=== PATIENT | male | born 1935 | race Caucasian/White ===

== ENCOUNTER → 2017-07-07 | Outpatient (CLI) | payer OTHER ==
[~2017-07-07] MED LIST: ATOR10 PO; DYAZ37.52 PO; ENAL2.5 PO; METO25 PO; OMEP20CA5 PO; TAB-TAB PO; TIOT18I INH; VENTAER INH
--- NOTE | 2017-07-11 10:16 | RSPPFT ---
DATE OF PROCEDURE: 07/07/17 COMMENTS: Spirometry with FVC of 1.9 predicted 3.2, FEV1 of 0.9 predicted 2.5, FEV1/FVC ratio at 47%. There is some responsiveness to acutely inhaled bronchodilator with FEV1 increasing to 1.1 and FVC to 2.2. Air trapping is not present. The RV/TLC ratio is increased. DLCO is decreased. IMPRESSION: On the basis of the above, patient has a combined obstructive and restrictive defect with the obstructive component responding to acutely inhaled bronchodilator treatment.
== END ==
LOC: HRSP 09:12
PROVIDERS: ATTEND Internal Medicine Pulmonary Disease
DX: J44.9 Chronic obstructive pulmonary disease, unspecified (principal)
CPT/HCPCS: 94060; 94620; 94726; 94729

== ENCOUNTER 2017-11-04 12:33 | Emergency (ER) | payer OTHER ==
[~2017-11-04] VITALS: Ht 177.8 cm; Wt 86.0 kg
[2017-11-04 12:39] VITALS: BP 145/74; PULSE 99; RESP 18; TEMP 97.9; O2SAT 90
[2017-11-04] MEDS ORDERED: AMLO10TA2 PO (13:16)
[2017-11-04] MEDS ORDERED: ATOR10TA15 PO (13:16)
[2017-11-04] MEDS ORDERED: OMEP20TA93 PO (13:16)
[2017-11-04] MEDS ORDERED: FURO20TA PO (13:16)
[2017-11-04] MEDS ORDERED: ENAL10TA PO (13:16)
[2017-11-04] MEDS ORDERED: POTA10CA PO (13:16)
[2017-11-04] MEDS ORDERED: SULFAMETHOXAZOLE-TRIMETHOPRIM DS 800-160 MG TAB PO ONE (13:30)
[2017-11-04] MEDS ORDERED: CEPHALEXIN MONOHYDRATE 500 MG CAP PO ONE (13:30)
[2017-11-04] MEDS ORDERED: CEPH-460 PO (13:34)
[2017-11-04] MEDS ORDERED: BACT800T5 PO (13:34)
--- NOTE | 2017-11-04 13:35 | PD ---
HPI Chief Complaint: Skin Problem Time Seen by Provider: 13:24 Travel History International Travel<30 days: No Contact w/Intl Traveler<30days: No Traveled to known affect area: No History of Present Illness HPI 82-year-old male presents to the emergency department for evaluation of possible skin infection to his right forearm. Patient states that he had skin cancer removed by a lens coater the beginning of September. He was asked to weeks later and had the stitches removed. However, the last couple days, he has noticed some erythema to the area. He states that he did get some drainage out this morning from the area. No fevers or chills. Patient reports COPD with chronic shortness of breath. He states that his breathing is his normal and is at his baseline. His oxygen level is 90% on room air in triage and patient states this is his baseline. He declines any worsening or new symptoms. Moderate severity. No exacerbating or alleviating factors to the right forearm. PFSH Past Medical History Arthritis: Yes Asthma: Yes Autoimmune Disease: No Blood Disorders: No Anxiety: No Depression: No Heart Rhythm Problems: Yes (POSSIBLE A FIB? ) Cancer: Yes (SKIN CA) Cardiac Catheterization: Yes Cardiovascular Problems: Yes (CABG 2013) High Cholesterol: Yes (TAKES LIPITOR ) Chemotherapy: No Chest Pain: No Congestive Heart Failure: No COPD: No Cerebrovascular Accident: No Diabetes: No Diminished Hearing: No Endocrine: No Gastrointestinal Disorders: Yes GERD: Yes Glaucoma: No Genitourinary: No Headaches: No Hepatitis: No Hypertension: Yes (TAKES ENALAPRIL, LOPRESSOR) Immune Disorder: No Implanted Vascular Access Dvce: Yes Kidney Stones: No Musculoskeletal: Yes Neurologic: No Psychiatric: No Reproductive: No Respiratory: Yes (COPD, USES INHALER, BRONCHIAL ASTHMA) Migraines: No Myocardial Infarction: Yes Radiation Therapy: No Renal Failure: No Seizures: No Sickle Cell Disease: No Sleep Apnea: No Thyroid Disease: No Ulcer: No PNEUMOCCOCAL Vaccine (Year): 2 Past Surgical History Abdominal Surgery: No AICD: No Appendectomy: No Arteriovenous Shunt: No Body Medical Devices: CARDIAC STENT X2 Cardiac Surgery: Yes Coronary Artery Bypass Graft: Yes (2013) Coronary Stent: Yes (2) Ear Surgery: No Endocrine Surgery: No Eye Surgery: No Genitourinary Surgery: No Gynecologic Surgery: No Insulin Pump: No Joint Replacement: Yes (BOTH KNEES) Neurologic Surgery: No Pacemaker: No Thoracic Surgery: No Other Surgery: Yes (SEPTOPLASTY 2010, SKIN CA REMOVED MULTIPLE TIMES) Social History Alcohol Use: Yes (1 TO 2 DAILY) Tobacco Use: No Substance Use: No Allergies-Medications (Allergen,Severity, Reaction): Coded Allergies: codeine (Verified Allergy, Unknown, 11/04/17) CONFUSION Reported Meds & Prescriptions Reported Meds & Active Scripts Active Reported Furosemide 20 Mg Tab 20 Mg PO DAILY Potassium Chloride ER (Potassium Chloride) 10 Meq Cap 10 Meq PO DAILY Atorvastatin (Atorvastatin Calcium) 10 Mg Tab 10 Mg PO HS Omeprazole 20 Mg Tab 20 Mg PO DAILY Enalapril (Enalapril Maleate) 10 Mg Tab 10 Mg PO DAILY Amlodipine (Amlodipine Besylate) 10 Mg Tab 10 Mg PO DAILY Review of Systems Except as stated in HPI: all other systems reviewed are Neg Physical Exam Narrative GENERAL: Well-nourished, well-developed elderly male patient, afebrile. SKIN: Focused skin assessment warm/dry. Patient has small area of erythema to the right dorsal forearm. No lymphangitis. No active drainage. HEAD: Normocephalic. Atraumatic. EYES: No scleral icterus. No injection or drainage. NECK: Supple, trachea midline. No JVD or lymphadenopathy. CARDIOVASCULAR: Right radial pulse 2+. RESPIRATORY: No accessory muscle use. MUSCULOSKELETAL: No cyanosis, or edema. BACK: Nontender without obvious deformity. No CVA tenderness. Data Data Last Documented VS Vital Signs Date Time Temp Pulse Resp B/P (MAP) Pulse Ox O2 Delivery O2 Flow Rate FiO2 11/04/17 12:39 97.9 99 18 145/74 (97) 90 Orders Orders Sulfamet-Trimeth Ds 800-160 Mg (Bactrim (11/04/17 13:30) Cephalexin (Keflex) (11/04/17 13:30) [facility] Medical Decision Making Medical Screen Exam Complete: Yes Emergency Medical Condition: Yes Medical Record Reviewed: Yes Differential Diagnosis Cellulitis versus abscess versus skin rash Narrative Course 82-year-old male presents to the emergency department for evaluation of an area of erythema to his right dorsal forearm. Otherwise, patient has no complaints and states he is at his baseline. Patient will be started on Bactrim and Keflex. He is given his first dose here. He is instructed on proper wound care. He is to follow back up with his lens coater. He is to return here for any acute worsening of symptoms. The patient was discharged in stable condition with instructions, including return instructions and follow up instructions. Diagnosis Primary Impression: Cellulitis of right forearm Referrals: Primary Care Physician call for appointment Patient Instructions: Cellulitis (ED), General Instructions Additional Instructions: Clean area twice daily with soap and water and apply [id number] antibiotic ointment Take antibiotics as directed until gone. Follow-up with your lens coater. Return to the emergency department for any acute worsening of symptoms. Med/Other Pt SpecificInfo: Prescription(s) given Scripts Cephalexin (Keflex) 500 Mg Capsule 500 MG PO Q6H for Infection for 10 Days, #40 CAP 0 Refills Prov: Jeimy Muller 11/04/17 Sulfamethoxazole-Trimethoprim (Bactrim DS) 800-160 Mg Tab 1 TAB PO BID for Infection, #20 TAB 0 Refills Prov: Jeimy Muller 11/04/17 Disposition: 01 DISCHARGE HOME Condition: Stable Jeimy Muller Nov 04, 2017 13:35
[2017-11-05] MEDS ORDERED: COLY4000S PO (17:13)
== END 2017-11-04 13:49 | disposition home or self-care (01) ==
LOC: PHED 12:33 → PHEFT 13:49
DX: L03.113 Cellulitis of right upper limb (principal); J44.9 Chronic obstructive pulmonary disease, unspecified; R06.02 Shortness of breath; I10 Essential (primary) hypertension
CPT/HCPCS: 99283

== ENCOUNTER 2017-11-05 16:45 | Emergency (ER) | payer OTHER ==
[~2017-11-05] VITALS: Ht 172.7 cm; Wt 86.0 kg
[~2017-11-05 16:45] MED LIST changes: +AMLO10TA2 PO; -ATOR10 PO; +ATOR10TA15 PO; +BACT800T5 PO; +CEPH-460 PO; -DYAZ37.52 PO; +ENAL10TA PO; -ENAL2.5 PO; +FURO20TA PO; -METO25 PO; -OMEP20CA5 PO; +OMEP20TA93 PO; +POTA10CA PO; -TAB-TAB PO; -TIOT18I INH; -VENTAER INH
[2017-11-05 16:56] VITALS: BP 106/60; PULSE 101; RESP 24; TEMP 97.8; O2SAT 88
--- NOTE | 2017-11-05 17:06 | PD ---
HPI Chief Complaint: Abdominal Pain Time Seen by Provider: 17:04 Travel History International Travel<30 days: No Contact w/Intl Traveler<30days: No Traveled to known affect area: No History of Present Illness HPI Patient presents with complaints of constipation for 2-3 days. States this is not unusual for him but he normally has a bowel movement after 2 days. States he took some Colace this morning with a very small bowel movement. Denies any nausea or vomiting. History of COPD at baseline. Evaluated yesterday for lesion on his right arm. Compliant with oral antibiotics. PFSH Past Medical History Arthritis: Yes Asthma: Yes Autoimmune Disease: No Blood Disorders: No Anxiety: No Depression: No Heart Rhythm Problems: Yes (POSSIBLE A FIB? ) Cancer: Yes (SKIN CA) Cardiac Catheterization: Yes Cardiovascular Problems: Yes (CABG 2013) High Cholesterol: Yes Chemotherapy: No Chest Pain: No Congestive Heart Failure: No COPD: Yes Cerebrovascular Accident: No Diabetes: No Diminished Hearing: No Endocrine: No Gastrointestinal Disorders: Yes GERD: Yes Glaucoma: No Genitourinary: No Headaches: No Hepatitis: No Hypertension: Yes Immune Disorder: No Implanted Vascular Access Dvce: Yes Kidney Stones: No Musculoskeletal: Yes Neurologic: No Psychiatric: No Reproductive: No Respiratory: Yes (COPD, USES INHALER, BRONCHIAL ASTHMA) Migraines: No Myocardial Infarction: Yes Radiation Therapy: No Renal Failure: No Seizures: No Sickle Cell Disease: No Sleep Apnea: No Thyroid Disease: No Ulcer: No PNEUMOCCOCAL Vaccine (Year): 2 Past Surgical History Abdominal Surgery: No AICD: No Appendectomy: No Arteriovenous Shunt: No Body Medical Devices: CARDIAC STENT X2 Cardiac Surgery: Yes Coronary Artery Bypass Graft: Yes (2013) Coronary Stent: Yes (2) Ear Surgery: No Endocrine Surgery: No Eye Surgery: No Genitourinary Surgery: No Gynecologic Surgery: No Insulin Pump: No Joint Replacement: Yes (BOTH KNEES) Neurologic Surgery: No Pacemaker: No Thoracic Surgery: No Tonsillectomy: Yes Other Surgery: Yes (SEPTOPLASTY 2010, SKIN CA REMOVED MULTIPLE TIMES) Social History Alcohol Use: Yes (1 TO 2 DAILY) Tobacco Use: No Substance Use: No Allergies-Medications (Allergen,Severity, Reaction): Coded Allergies: codeine (Verified Allergy, Unknown, 11/04/17) CONFUSION Reported Meds & Prescriptions Reported Meds & Active Scripts Active Keflex (Cephalexin) 500 Mg Capsule 500 Mg PO Q6H 10 Days Bactrim DS (Sulfamethoxazole-Trimethoprim) 800-160 Mg Tab 1 Tab PO BID Reported Furosemide 20 Mg Tab 20 Mg PO DAILY Potassium Chloride ER (Potassium Chloride) 10 Meq Cap 10 Meq PO DAILY Atorvastatin (Atorvastatin Calcium) 10 Mg Tab 10 Mg PO HS Omeprazole 20 Mg Tab 20 Mg PO DAILY Enalapril (Enalapril Maleate) 10 Mg Tab 10 Mg PO DAILY Amlodipine (Amlodipine Besylate) 10 Mg Tab 10 Mg PO DAILY Review of Systems General / Constitutional: No: Fever Eyes: No: Visual changes HENT: No: Headaches Cardiovascular: No: Chest Pain or Discomfort Respiratory: No: Shortness of Breath Gastrointestinal: Positive: Abdominal Pain, Constipation Genitourinary: No: Dysuria Musculoskeletal: No: Pain Skin: No Rash Neurologic: No: Weakness Psychiatric: No: Depression Endocrine: No: Polydipsia Hematologic/Lymphatic: No: Easy Bruising Physical Exam Narrative GENERAL: Well-nourished, well-developed patient. SKIN: Focused skin assessment warm/dry. HEAD: Normocephalic. EYES: No scleral icterus. No injection or drainage. NECK: Supple, trachea midline. No JVD or lymphadenopathy. CARDIOVASCULAR: Regular rate and rhythm without murmurs, gallops, or rubs. RESPIRATORY: Poor breath sounds.. GASTROINTESTINAL: Abdomen soft, non-tender, minimally distended MUSCULOSKELETAL: No cyanosis, or edema. BACK: Nontender without obvious deformity. No CVA tenderness. Data Data Last Documented VS Vital Signs Date Time Temp Pulse Resp B/P (MAP) Pulse Ox O2 Delivery O2 Flow Rate FiO2 11/05/17 17:00 88 Nasal Cannula 2.00 11/05/17 16:56 97.8 101 24 106/60 (75) [facility] Medical Decision Making Medical Screen Exam Complete: Yes Emergency Medical Condition: Yes Differential Diagnosis Constipation, small bowel obstruction, malingering Narrative Course Assessment plan discussed with patient at bedside. Diagnosis Primary Impression: Constipation Qualified Codes: K59.00 - Constipation, unspecified Patient Instructions: General Instructions Additional Instructions: Encouraged a fluid fiber supplement daily. Encourage regular use of Colace. Encouraged regular use of prune juice. Discussed alternative treatment with patient a list was provided to him. Encouraged to return to the emergency room with any onset of new symptoms. Encouraged to follow-up with PCP. Med/Other Pt SpecificInfo: Prescription(s) given Scripts Peg-Electrolytes (Golytely 236 gm) 4,000 Ml Soln 4000 ML PO ONCE for Bowel Cleanser, #1 CONTAINER 0 Refills Prov: Waldemar Stevens MD 11/05/17 Disposition: 01 DISCHARGE HOME Condition: Good Waldemar Stevens MD Nov 05, 2017 17:06
[2017-11-05] MEDS ORDERED: COLY4000S PO (17:13)
== END 2017-11-05 17:33 | disposition home or self-care (01) ==
LOC: PHED 16:45
DX: K59.00 Constipation, unspecified (principal); J44.9 Chronic obstructive pulmonary disease, unspecified; J45.909 Unspecified asthma, uncomplicated; I10 Essential (primary) hypertension
CPT/HCPCS: 99283

== ENCOUNTER 2017-11-07 08:02 | Inpatient (IN) | payer OTHER, MEDICARE ==
[~2017-11-07] VITALS: Ht 172.7 cm; Wt 84.5 kg
[2017-11-07] VITALS (9 sets, daily range): BP systolic 116–144; BP diastolic 53–72; PULSE 74–87; RESP 16–20; TEMP 96.2–98.1; O2SAT 85–97
[~2017-11-07 08:02] MED LIST changes: +COLY4000S PO
[2017-11-07] MEDS ORDERED: RESP: ALBUTEROL 2.5 MG/IPRATROPIUM 0.5 MG NEB (SCH) INH ONE (08:15)
[2017-11-07] MEDS ORDERED: SODIUM CHLORIDE 0.9% FLUSH 10 ML FLUSH IVF PRN (08:15)
[2017-11-07 08:29] LABS: AUTOMATED NEUTROPHIL # 8.1 TH/MM3 (1.8-7.7); BASOPHIL # 0.5 TH/MM3 (0-0.2); BASOPHIL % 4.4 % (0.0-2.0); CHLORIDE 99 MEQ/L (98-107); EOSINOPHIL # 0.1 TH/MM3 (0-0.4); EOSINOPHIL % 1.2 % (0.0-4.0); HEMATOCRIT 43.8 % (39.0-51.0); HEMOGLOBIN 14.1 GM/DL (13.0-17.0); LYMPH % 7.1 % (9.0-44.0); LYMPHOCYTE # 0.8 TH/MM3 (1.0-4.8); MEAN CORPUSCULAR HEMOGLOBIN 30.3 PG (27.0-34.0); MEAN CORPUSCULAR HGB CONC 32.2 % (32.0-36.0); MEAN PLATELET VOLUME 7.6 FL (7.0-11.0); MONO % 12.6 % (0.0-8.0); MONOCYTE # 1.4 TH/MM3 (0-0.9); NEUT % 74.7 % (16.0-70.0); PLATELET COUNT 321 TH/MM3 (150-450); RED BLOOD COUNT 4.66 MIL/MM3 (4.50-5.90); RED CELL DISTRIBUTION WIDTH 15.2 % (11.6-17.2); SODIUM (NA) 131 MEQ/L (136-145); WHITE BLOOD COUNT 10.9 TH/MM3 (4.0-11.0)
--- NOTE | 2017-11-07 08:32 | PD ---
HPI Chief Complaint: Respiratory Symptoms Time Seen by Provider: 08:07 Travel History International Travel<30 days: No Contact w/Intl Traveler<30days: No Traveled to known affect area: No History of Present Illness HPI Patient is an 82-year-old male who comes in complaining of shortness of breath. He has a longtime history of COPD, and says that this has been going on for a while. He was here on November 04 and for different complaints, and did not mention the shortness of breath. When asked why he called 911 today, he says that he was unable to sleep last night and he had trouble eating yesterday. He denies nausea or vomiting. He denies abdominal pain. He denies chest pain. He says he always has a cough. He denies fever or chills. He says he has been using his inhaler without relief of his symptoms. He denies leg swelling or pain to his legs. Severity is mild. PFSH Past Medical History Hx Anticoagulant Therapy: No Arthritis: Yes Asthma: Yes Autoimmune Disease: No Blood Disorders: No Anxiety: No Depression: No Heart Rhythm Problems: Yes (POSSIBLE A FIB? ) Cancer: Yes (SKIN CA) Cardiac Catheterization: Yes Cardiovascular Problems: Yes (TRIPLE BYPASS, HTN, CHOL, IRREGULAR HEART BEAT) High Cholesterol: Yes Chemotherapy: No Chest Pain: No Congestive Heart Failure: No COPD: Yes Cerebrovascular Accident: No Diabetes: No Diminished Hearing: No Endocrine: No Gastrointestinal Disorders: Yes GERD: Yes Glaucoma: No Genitourinary: No Headaches: No Hepatitis: No Heparin Induced Thrombocytopen: No Hypertension: Yes Immune Disorder: No Implanted Vascular Access Dvce: Yes Kidney Stones: No Musculoskeletal: Yes Neurologic: No Psychiatric: No Reproductive: No Respiratory: Yes (COPD) Migraines: No Myocardial Infarction: Yes Radiation Therapy: No Renal Failure: No Seizures: No Sickle Cell Disease: No Sleep Apnea: No Thyroid Disease: No Ulcer: No PNEUMOCCOCAL Vaccine (Year): 2 Past Surgical History Abdominal Surgery: No AICD: No Appendectomy: No Arteriovenous Shunt: No Body Medical Devices: CARDIAC STENT X2 Cardiac Surgery: Yes Cholecystectomy: No Coronary Artery Bypass Graft: Yes (2013) Coronary Stent: Yes (2) Ear Surgery: No Endocrine Surgery: No Eye Surgery: No Genitourinary Surgery: No Gynecologic Surgery: No Insulin Pump: No Joint Replacement: Yes (BOTH KNEES) Neurologic Surgery: No Pacemaker: No Thoracic Surgery: No Tonsillectomy: Yes Other Surgery: Yes (SEPTOPLASTY 2010, SKIN CA REMOVED MULTIPLE TIMES) Family History Family Myocardial Infarction: No Social History Alcohol Use: Yes (1 TO 2 DAILY) Tobacco Use: No Substance Use: No Allergies-Medications (Allergen,Severity, Reaction): Coded Allergies: codeine (Verified Allergy, Unknown, 11/07/17) CONFUSION Reported Meds & Prescriptions Reported Meds & Active Scripts Active Reported Furosemide 20 Mg Tab 20 Mg PO DAILY Potassium Chloride ER (Potassium Chloride) 10 Meq Cap 10 Meq PO DAILY Atorvastatin (Atorvastatin Calcium) 10 Mg Tab 10 Mg PO HS Omeprazole 20 Mg Tab 20 Mg PO DAILY Enalapril (Enalapril Maleate) 10 Mg Tab 10 Mg PO DAILY Amlodipine (Amlodipine Besylate) 10 Mg Tab 10 Mg PO DAILY Review of Systems Except as stated in HPI: all other systems reviewed are Neg General / Constitutional: No: Fever, Chills HENT: No: Headaches, Lightheadedness Cardiovascular: No: Chest Pain or Discomfort Respiratory: Positive: Cough, Shortness of Breath Gastrointestinal: No: Nausea, Vomiting, Abdominal Pain Musculoskeletal: No: Myalgias, Edema Skin: No Rash, No Change in Pigmentation Neurologic: No: Weakness, Dizziness Physical Exam Narrative GENERAL: Awake and alert, in no acute distress. SKIN: Focused skin assessment warm/dry. No wounds or signs of infection. HEAD: Atraumatic. Normocephalic. EYES: Pupils equal and round. No scleral icterus. ENT: Mucous membranes pink and moist. NECK: Trachea midline. No JVD. CARDIOVASCULAR: Regular rate and rhythm. No murmur appreciated. RESPIRATORY: No accessory muscle use. Decreased breath sounds on the right. Breath sounds equal bilaterally. GASTROINTESTINAL: Abdomen soft, non-tender, nondistended. MUSCULOSKELETAL: No obvious deformities. No clubbing. No cyanosis. No edema. NEUROLOGICAL: Awake and alert. No obvious cranial nerve deficits. Motor grossly within normal limits. Normal speech. PSYCHIATRIC: Appropriate mood and affect; insight and judgment normal. Data Data Last Documented VS Vital Signs Date Time Temp Pulse Resp B/P (MAP) Pulse Ox O2 Delivery O2 Flow Rate FiO2 11/07/17 09:13 81 16 128/53 (78) 94 Nasal Cannula 2.00 11/07/17 08:05 97.9 Orders Orders Complete Blood Count With Diff (11/07/17 08:12) Comprehensive Metabolic Panel (11/07/17 08:12) B-Type Natriuretic Peptide (11/07/17 08:12) Act Partial Throm Time (Ptt) (11/07/17 08:12) Prothrombin Time / Inr (Pt) (11/07/17 08:12) Troponin I (11/07/17 08:12) Influenzae A/B Antigen (11/07/17 08:12) Iv Access Insert/Monitor (11/07/17 08:12) Electrocardiogram (11/07/17 08:12) Ecg Monitoring (11/07/17 08:12) Oximetry (11/07/17 08:12) Oxygen Administration (11/07/17 08:12) Chest, Single Ap (11/07/17 08:12) Sodium Chloride 0.9% Flush (Ns Flush) (11/07/17 08:15) Albuterol-Ipratropium Neb (Duoneb Neb) (11/07/17 08:15) Furosemide Inj (Lasix Inj) (11/07/17 09:15) Ceftriaxone Inj (Rocephin Inj) (11/07/17 09:30) Azithromycin Inj (Zithromax Inj) (11/07/17 09:30) Labs Laboratory Tests Test 11/07/17 08:05 White Blood Count 10.9 TH/MM3 Red Blood Count 4.66 MIL/MM3 Hemoglobin 14.1 GM/DL Hematocrit 43.8 % Mean Corpuscular Volume 94.0 FL Mean Corpuscular Hemoglobin 30.3 PG Mean Corpuscular Hemoglobin Concent 32.2 % Red Cell Distribution Width 15.2 % Platelet Count 321 TH/MM3 Mean Platelet Volume 7.6 FL Neutrophils (%) (Auto) 74.7 % Lymphocytes (%) (Auto) 7.1 % Monocytes (%) (Auto) 12.6 % Eosinophils (%) (Auto) 1.2 % Basophils (%) (Auto) 4.4 % Neutrophils # (Auto) 8.1 TH/MM3 Lymphocytes # (Auto) 0.8 TH/MM3 Monocytes # (Auto) 1.4 TH/MM3 Eosinophils # (Auto) 0.1 TH/MM3 Basophils # (Auto) 0.5 TH/MM3 CBC Comment DIFF FINAL Differential Comment Prothrombin Time 10.8 SEC Prothromb Time International Ratio 1.1 RATIO Activated Partial Thromboplast Time 25.0 SEC Blood Urea Nitrogen 13 MG/DL Creatinine 0.91 MG/DL Random Glucose 127 MG/DL Total Protein 7.4 GM/DL Albumin 3.0 GM/DL Calcium Level 8.5 MG/DL Alkaline Phosphatase 86 U/L Aspartate Amino Transf (AST/SGOT) 17 U/L Alanine Aminotransferase (ALT/SGPT) 26 U/L Total Bilirubin 1.0 MG/DL Sodium Level 131 MEQ/L Potassium Level 4.4 MEQ/L Chloride Level 99 MEQ/L Carbon Dioxide Level 24.0 MEQ/L Anion Gap 8 MEQ/L Estimat Glomerular Filtration Rate 79 ML/MIN Troponin I LESS THAN 0.02 NG/ML B-Type Natriuretic Peptide 361 PG/ML MDM Medical Decision Making Medical Screen Exam Complete: Yes Emergency Medical Condition: Yes Medical Record Reviewed: Yes Interpretation(s) ECG shows supraventricular rhythm at a rate of 79 Differential Diagnosis COPD exacerbation versus pneumonia versus influenza Narrative Course Patient is an 82-year-old male who comes in complaining of shortness of breath. Exam shows some decreased breath sounds on the right. I have examined, labs sent. Labs show a left shift, with increased neutrophils. Chest x-ray performed shows vascular congestion and a large right-sided pleural effusion, that is loculated, concerning for pneumonia. Last 24 hours Impressions Chest X-Ray 11/07/17 0812 Signed Impressions: Service Date/Time: Tuesday, November 07, 2017 08:31 - CONCLUSION: 1. Mild pulmonary vascular congestion. 2. Loculated appearing small to moderate size right pleural effusion with associated right lower lobe airspace disease. Lucio Singer MD Patient was given 1 DuoNeb, a small dose of Lasix, and covered with antibiotics. He will be admitted for further management. Diagnosis Primary Impression: Pneumonia Qualified Codes: J18.1 - Lobar pneumonia, unspecified organism Additional Impression: Shortness of breath Admitting Information Admitting Physician Requests: Admit Mercy Layton MD Nov 07, 2017 08:32
[2017-11-07 08:33] LABS: BLOOD UREA NITROGEN 13 MG/DL (7-18); CALCIUM 8.5 MG/DL (8.5-10.1); GLUCOSE,RANDOM 127 MG/DL (74-106)
[2017-11-07 08:35] LABS: INTERNATIONAL NORMALIZED RATIO 1.1 RATIO; PROTHROMBIN TIME - PATIENT 10.8 SEC (9.8-11.6)
[2017-11-07 08:36] LABS: ALT (GPT) 26 U/L (12-78); AST (GOT) 17 U/L (15-37)
[2017-11-07 08:37] LABS: CREATININE 0.91 MG/DL (0.60-1.30); GLOMERULAR FILTRATION RATE 79 ML/MIN (>89)
[2017-11-07 08:38] LABS: TOTAL PROTEIN 7.4 GM/DL (6.4-8.2)
[2017-11-07 08:39] LABS: ALKALINE PHOSPHATASE 86 U/L (45-117)
[2017-11-07 08:41] LABS: TROPONIN I LESS THAN 0.02 NG/ML (0.02-0.05)
--- NOTE | 2017-11-07 09:10 | RADRPT ---
EXAM DATE/TIME: 11/07/2017 08:31 [facility] COMPARISON: CHEST SINGLE AP, March 11, 2015, 11:18. INDICATIONS : Short of breath. MEDICAL HISTORY : Chronic obstructive pulmonary disease. Hypercholesterolemia. Myocardial infarction. Hypertension. Irregular heart beat. Asthma. Hiatial hernia. Arthritis. SURGICAL HISTORY : Tonsillectomy. CABG. Bilateral knee replacements. Cardiac cath w/ stent. ENCOUNTER: Initial ACUITY: 1 day PAIN SCORE: 0/10 LOCATION: chest FINDINGS: Stable postsurgical features with median sternotomy wires. The loculated appearing right pleural effu emeterio with associated right lower lobe airspace disease. Redemonstration of pleural calcifications in the left inferior hemithorax. Cardiomedi style contours are stable. Central pulmonary vascularity is indistinct. CONCLUSION: 1. Mild pulmonary vascular congestion. 2. Loculated appearing small to moderate size right pleural effusion with associated right lower lobe airspace disease. Lucio Singer MD on November 07, 2017 at 9:02 Board Certified Radiologist. This report was verified electronically.
[2017-11-07] MEDS ORDERED: FUROSEMIDE 20 MG/2 ML VIAL IV PUSH ONE (09:15)
[2017-11-07] MEDS ORDERED: cefTRIAXone INJ 1,000 MG in SODIUM CHLORIDE 0.9% INJ 100 ML IV ONE (09:30)
[2017-11-07] MEDS ORDERED: AZITHROMYCIN INJ 500 MG in SODIUM CHLOR 0.9% 250 ML INJ 250 ML IV ONE (09:30)
--- NOTE | 2017-11-07 11:30 | RADRPT ---
EXAM DATE/TIME: 11/07/2017 10:01 [facility] COMPARISON: No previous studies available for comparison. INDICATIONS : Right pleural effusion. MEDICAL HISTORY : Hypercholesterolemia. Myocardial infarction. Arthritis. Syncope. Irregular heartbeat. HTN. COPD. Asth ma. Dyspnea. Hiatal hernia. GERD. Skin cancer. SURGICAL HISTORY : Tonsillectomy. Cholecystectomy. Coronary artery stent. CABG. Cardiac cath. Right rotator cuff repair. Bilateral knee replacements. Septoplasty. Skin cancer removed multiple times. ENCOUNTER: Initial ACUITY: 1 day PAIN SCORE: 0/10 LOCATION: Right chest FLUID: Total volume of 1100 cc of clear pale red fluid was removed. Fluid was sent to lab for ordered studies. TECHNIQUE: 1. Ultrasound guidance for thoracentesis. 2. Thoracentesis. The risks, benefits, and alternatives to ultrasound guided thoracentesis were explained to the patien t in lay simple terms, including the risk of bleeding and infection. Written and verbal informed con sent was obtained. Appropriate area for thoracentesis was marked under ultrasound guidance with the patient in the uprig ht position. Overlying skin was prepped and draped in the usual sterile fashion and with local anest hetic, a dermatotomy was made with an 11 blade scalpel. A 6 Mongolian thoracentesis catheter was placed in the pleural space and fluid was removed. Catheter was then removed and a sterile dressing applie d. There were no immediate complications. The patient tolerated the procedure well and the left the ultrasound suite in stable condition. Chest radiograph is to be obtained. CONCLUSION: Uncomplicated ultrasound guided thoracentesis. Ezekiel Morin MD on November 07, 2017 at 11:27 Board Certified Radiologist. This report was verified electronically.
--- NOTE | 2017-11-07 11:52 | RADRPT ---
EXAM DATE/TIME: 11/07/2017 11:10 [facility] COMPARISON: CHEST SINGLE AP, November 07, 2017, 8:31. INDICATIONS : Post right thoracentesis. MEDICAL HISTORY : Chronic obstructive pulmonary disease. Hypercholesterolemia. Myocardial infarction. Hypertension. Irr egular heart beat. Asthma. Hiatial hernia. Arthritis. SURGICAL HISTORY : Tonsillectomy. CABG. Bilateral knee replacements. Cardiac cath w/ stent. ENCOUNTER: Subsequent ACUITY: 1 day PAIN SCORE: 0/10 LOCATION: Right chest FINDINGS: The significant improved right-sided pleural effusion without evidence for significant pneumothorax f ollowing thoracentesis. Redemonstration of diffuse interstitial prominence bilaterally. Persistent ri ght lower lung zone airspace disease. Cardiomediastinal contours are stable. Remainder of the exam is unchanged. CONCLUSION: 1. Interval resolution of right-sided pleural effusion status post thoracentesis without pneumothorax . 2. Right lower lung zone airspace consolidation which may reflect compressive atelectasis although pn eumonia or aspiration cannot be excluded in the appropriate clinical setting. Lucio Singer MD on November 07, 2017 at 11:47 Board Certified Radiologist. This report was verified electronically.
[2017-11-07 12:13] LABS: PLEURAL FLUID EOS 5 %; PLEURAL FLUID LYMPHS 75 %; PLEURAL FLUID POLYS (SEGS) 20 %; PLEURAL FLUID RBC 32000 /MM3 (0-0); PLEURAL FLUID WBC 90 /MM3 (0-10)
[2017-11-07] MEDS ORDERED: RESP: ALBUTEROL 1.25 MG/3 ML NEB (PRN) NEB (12:15)
--- NOTE | 2017-11-07 12:46 | HHI.HP ---
[facility] Kadi Coughlin MD Admission Diagnosis Pneumonia Diagnoses: Chief Complaint: shortness of breath Travel History International Travel<30 Days: No Contact w/Intl Traveler <30 Da: No Traveled to Known Affected Are: No History of Present Illness 82-year-old white male admitting admitted for shortness of breath. Patient was in usual state of health until about a week ago and he says he began experiencing gradual worsening of exertional dyspnea. He says at rest he has been fine. Denies any worsening cough or worsening URI-like symptoms otherwise. However today earlier this morning he bent down forward to unplug the TV and when he did that he felt very short of breath. He took his albuterol thinking it would help but it provided no avail. Thus he decided to come to the emergency department. In the ER, the patient had a chest x-ray which I independently reviewed and shows what appears to be at least a right-sided pleural effusion with possible infiltrates on the right as well. He was given Rocephin and azithromycin and lasix. Patient's past medical history significant for cardiac catheterization as well as bypass surgery. 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 Madrigal in [place]. Patient does report taking his an Anora inhaler daily. Patient does have significant social history for smoking up until about 25 years ago, had been smoking for 40 years. Family history significant for an aunt with breast cancer. Past Family Social History Allergies: Coded Allergies: codeine (Verified Allergy, Unknown, 11/07/17) CONFUSION Physical Exam Vital Signs Vital Signs Date Time Temp Pulse Resp B/P (MAP) Pulse Ox O2 Delivery O2 Flow Rate FiO2 11/07/17 11:54 11/07/17 11:22 87 20 121/60 (80) 97 11/07/17 09:13 81 16 128/53 (78) 94 Nasal Cannula 2.00 11/07/17 08:31 16 95 Nasal Cannula 2.00 11/07/17 08:31 95 Nasal Cannula 2.00 2/13/18 08:10 18 92 Room Air 11/07/17 08:05 97.9 74 18 144/70 (94) 92 Physical Exam VS: afebrile GENERAL: No acute distress lying in bed resting, awake alert SKIN: Warm and dry. EYES: No scleral icterus. No injection or drainage. ENT: No nasal bleeding or discharge. Dentures in place CARDIOVASCULAR: Regular rate and rhythm. no murmurs RESPIRATORY: No accessory muscle use. Clear breath sounds on the left, coarse breath sounds in right base. Has post procedure dressing from thoracentesis on the right. GASTROINTESTINAL: Abdomen soft, non-tender, nondistended. Hepatic and splenic margins not palpable. Extremities: No clubbing, cyanosis, or edema. No obvious deformities. MUSCULOSKELETAL: adequate muscle bulk and tone for age and habitus NEUROLOGICAL: Awake and alert. No obvious cranial nerve deficits. No facial droop nor slurred speech noted. PSYCHIATRIC: Appropriate mood and affect; insight and judgment normal. Laboratory Laboratory Tests Test 11/07/17 08:05 11/07/17 10:53 White Blood Count 10.9 Red Blood Count 4.66 Hemoglobin 14.1 Hematocrit 43.8 Mean Corpuscular Volume 94.0 Mean Corpuscular Hemoglobin 30.3 Mean Corpuscular Hemoglobin Concent 32.2 Red Cell Distribution Width 15.2 Platelet Count 321 Mean Platelet Volume 7.6 Neutrophils (%) (Auto) 74.7 Lymphocytes (%) (Auto) 7.1 Monocytes (%) (Auto) 12.6 Eosinophils (%) (Auto) 1.2 Basophils (%) (Auto) 4.4 Neutrophils # (Auto) 8.1 Lymphocytes # (Auto) 0.8 Monocytes # (Auto) 1.4 Eosinophils # (Auto) 0.1 Basophils # (Auto) 0.5 CBC Comment DIFF FINAL Differential Comment Prothrombin Time 10.8 Prothromb Time International Ratio 1.1 Activated Partial Thromboplast Time 25.0 Blood Urea Nitrogen 13 Creatinine 0.91 Random Glucose 127 Total Protein 7.4 Albumin 3.0 Calcium Level 8.5 Alkaline Phosphatase 86 Aspartate Amino Transf (AST/SGOT) 17 Alanine Aminotransferase (ALT/SGPT) 26 Total Bilirubin 1.0 Sodium Level 131 Potassium Level 4.4 Chloride Level 99 Carbon Dioxide Level 24.0 Anion Gap 8 Estimat Glomerular Filtration Rate 79 Troponin I LESS THAN 0.02 B-Type Natriuretic Peptide 361 Date/Time Source Procedure Growth Status 11/07/17 10:53 Fluid Pleural Fluid Fungal Smear Pending Received 11/07/17 10:53 Fluid Pleural Fluid Fungal Culture Pending Received 11/07/17 08:26 Nasal Washing Influenza Types A,B Antigen (REYNALDO) - Final NEGATIVE FOR FLU A AND B ANTIGEN.... Complete Result Diagram: 11/07/17 0805 11/07/17 0805 Imaging Last Impressions Chest X-Ray 11/07/17 0812 Signed Impressions: Service Date/Time: Tuesday, November 07, 2017 08:31 - CONCLUSION: 1. Mild pulmonary vascular congestion. 2. Loculated appearing small to moderate size right pleural effusion with associated right lower lobe airspace disease. Lucio Singer MD Thoracentesis Ultrasound 11/07/17 0000 Signed Impressions: Service Date/Time: Tuesday, November 07, 2017 10:01 - CONCLUSION: Uncomplicated ultrasound guided thoracentesis. MD Racquel Zuleta VTE Risk Assessment Caprini VTE Risk Assessment: Mod/High Risk (score >= 2) Caprini Risk Assessment Model Point Value = 1 Point Value = 2 Point Value = 3 Point Value = 5 Age 41-60 Minor surgery BMI > 25 kg/m2 Swollen legs Varicose veins or History of unexplained or recurrent spontaneous Oral contraceptives or hormone replacement Sepsis (< 1 month) Serious lung disease, including pneumonia (< 1 month) Abnormal pulmonary function Acute myocardial infarction Congestive heart failure (< 1 month) History of inflammatory bowel disease Medical patient at bed rest Age 61-74 Arthroscopic surgery Major open surgery (> 45 min) Laparoscopic surgery (> 45 min) Malignancy Confined to bed (> 72 hours) Immobilizing plaster cast Central venous access Age >= 75 History of VTE Family history of VTE Factor V Leiden Prothrombin [id number] Lupus anticoagulant Anticardiolipin antibodies Elevated serum homocysteine Heparin-induced thrombocytopenia Other congenital or acquired thrombophilia Stroke (< 1 month) Elective arthroplasty Hip, pelvis, or leg fracture Acute spinal cord injury (< 1 month) Prophylaxis Regimen Total Risk Factor Score Risk Level Prophylaxis Regimen 0-1 Low Early ambulation 2 Moderate Order ONE of the following: *Sequential Compression Device (SCD) *Heparin 5000 units SQ BID 3-4 Higher Order ONE of the following medications: *Heparin 5000 units SQ TID *Enoxaparin/Lovenox 40 mg SQ daily (WT < 150 kg, CrCl > 30 mL/min) *Enoxaparin/Lovenox 30 mg SQ daily (WT < 150 kg, CrCl > 10-29 mL/min) *Enoxaparin/Lovenox 30 mg SQ BID (WT < 150 kg, CrCl > 30 mL/min) AND/OR *Sequential Compression Device (SCD) 5 or more Highest Order ONE of the following medications: *Heparin 5000 units SQ TID (Preferred with Epidurals) *Enoxaparin/Lovenox 40 mg SQ daily (WT < 150 kg, CrCl > 30 mL/min) *Enoxaparin/Lovenox 30 mg SQ daily (WT < 150 kg, CrCl > 10-29 mL/min) *Enoxaparin/Lovenox 30 mg SQ BID (WT < 150 kg, CrCl > 30 mL/min) AND *Sequential Compression Device (SCD) Assessment and Plan Assessment and Plan 82-year-old white male admitted for shortness of breath secondary to pleural effusion and pneumonia Shortness of breath -Likely secondary to pleural effusion and pneumonia, I ordered an ultrasound- guided thoracentesis, had 1100 mL's removed from the right lung -Continue with Rocephin and azithromycin daily, continue home medications, will hold off on steroids as I do not hear substantial wheezing at this time - bmp in AM since pt was given lasix - f/u bc's pleural effusion - s/p procedure w/o complications, pleural fluid cx pending COPD - scheduled duonebs while awake, prn otherwise continue home lipitor, enalapril, lasix, and prilosec lovenox Physician Certification 2 Midnight Certification Type: Admission for Inpatient Services Order for Inpatient Services The services are ordered in accordance with Medicare regulations or non- Medicare payer requirements, as applicable. In the case of services not specified as inpatient-only, they are appropriately provided as inpatient services in accordance with the 2-midnight benchmark. Estimated LOS (days): 2 2 days is the estimated time the patient will need to remain in the hospital, assuming treatment plan goals are met and no additional complications. Post-Hospital Plan: Home Taran Dorado MD Nov 07, 2017 12:46
[2017-11-07] MEDS: RESP: ALBUTEROL 2.5 MG/IPRATROPIUM 0.5 MG NEB (SCH) NEB ×2 (13:52→20:13)
--- NOTE | 2017-11-07 18:35 | EKG ---
Date Performed: 11/07/2017 Time Performed: 08:33:37 PTAGE: 82 years EKG: Apparent atrial fibrillation with bigeminal premature ventricular Contractions. MARKED LEFT AXIS DEVIATION NONSPECIFIC T-WAVE ABNORMALITY When compard to previous tracing, atrial fibrillation has replaced Sinus rhythm . ABNORMAL ECG PREVIOUS TRACING : 03/11/2015 17.11 DOCTOR: Fernie Vaughn Interpretating Date/Time 11/07/2017 18:33:06
[2017-11-07] MEDS ORDERED: ATORVASTATIN 10 MG TAB PO SCH (21:00)
[2017-11-08] VITALS: BP 120/60; PULSE 82; RESP 20; TEMP 96.1; O2SAT 94
[2017-11-08] MEDS ORDERED: ACETAMINOPHEN 325 MG TAB PO PRN (04:30)
[2017-11-08] MEDS: RESP: ALBUTEROL 2.5 MG/IPRATROPIUM 0.5 MG NEB (SCH) NEB (07:25)
[2017-11-08 07:46] VITALS: O2SAT 93
[2017-11-08 07:50] VITALS: BP 140/59; PULSE 81; RESP 20; TEMP 96.4; O2SAT 91
[2017-11-08] MEDS ORDERED: UMECLIDINIUM 62.5 MCG/VILANTEROL 25 MCG INHALER INH SCH (09:00)
[2017-11-08] MEDS ORDERED: POTASSIUM CHLORIDE 10 MEQ CONTROLLED RELEASE TAB PO SCH (09:00)
[2017-11-08] MEDS ORDERED: PANTOPRAZOLE SOD 20 MG DELAYED RELEASE TAB PO SCH (09:00)
[2017-11-08] MEDS ORDERED: ENALAPRIL MALEATE 10 MG TAB PO SCH (09:00)
[2017-11-08] MEDS ORDERED: AZITHROMYCIN INJ 500 MG in SODIUM CHLOR 0.9% 250 ML INJ 250 ML IV SCH (09:00)
[2017-11-08] MEDS ORDERED: cefTRIAXone INJ 1,000 MG in SODIUM CHLORIDE 0.9% INJ 100 ML IV SCH (10:00)
[2017-11-08 11:50] VITALS: BP 133/60; PULSE 84; RESP 20; TEMP 96.5; O2SAT 91
--- NOTE | 2017-11-08 13:19 | HHI.PR ---
Subjective Remarks Nursing denies any deterioration since last night. Patient says he feels much better this morning. Says his breathing is much better this morning. Eating well. No nausea vomiting. Objective Vital Signs Date Time Temp Pulse Resp B/P (MAP) Pulse Ox O2 Delivery O2 Flow Rate FiO2 11/08/17 11:50 96.5 84 20 133/60 (84) 91 11/08/17 09:20 94 Nasal Cannula 1.00 11/08/17 07:50 96.4 81 20 140/59 (86) 91 11/08/17 07:46 93 21 11/08/17 00:00 96.1 82 20 120/60 (80) 94 11/07/17 20:15 92 Nasal Cannula 2.00 11/07/17 20:00 97.6 85 20 132/65 (87) 85 11/07/17 19:00 94 Room Air 11/07/17 18:27 98.1 87 16 116/72 (87) 94 11/07/17 16:10 95 Nasal Cannula 11/07/17 13:55 95 Nasal Cannula 2.00 I/O 11/07/17 11/07/17 11/07/17 11/08/17 11/08/17 11/08/17 06:59 14:59 22:59 06:59 14:59 22:59 Intake Total 480 ml Output Total 1200 ml Balance -720 ml Intake Oral 480 ml Output Urine Total 1200 ml Result Diagram: 11/07/17 0805 11/07/17 0805 Objective Remarks Lung sounds are clear all throughout. Unlabored breathing, sitting up eating A/P Assessment and Plan Pleural effusion has been drained successfully of the right lung with about 1100 mL's. Fluid is overwhelmingly bloody as opposed to purulent. Cultures have been sent. Patient has remained afebrile and is clinically back to baseline. Pro-calcitonin was within normal limits thus not warranting antibiotics any further for any respiratory infection. Patient has met maximal benefit from hospitalization and is clinically stable for discharge. Taran Dorado MD Nov 08, 2017 13:19
--- NOTE | 2017-11-08 13:23 | HHI.DCPOC ---
Discharge Care Plan Diagnosis: (1) Pleural effusion (2) Shortness of breath Goals to Promote Your Health * To prevent worsening of your condition and complications * To maintain your health at the optimal level Directions to Meet Your Goals Take your medications as prescribed Follow your dietary instruction Follow activity as directed Keep your appointments as scheduled Take your immunizations and boosters as scheduled If your symptoms worsen call your PCP, if no PCP go to Urgent Care Center or Emergency Room Smoking is Dangerous to Your Health. Avoid second hand smoke Call the 24-hour hour crisis hotline for domestic abuse at Taran Dorado MD Nov 08, 2017 13:23
== END 2017-11-08 15:34 | disposition home or self-care (01) | DRG 186 ==
LOC: PHED 08:02 → PHEDA 09:34 → PH3A 11:30
PROVIDERS: ADMIT Hospitalist; ATTEND Hospitalist
PROC: 0W993ZX Drainage of Right Pleural Cavity, Percutaneous Approach, Diagnostic (ICD-10-PCS; principal; 2017-11-07)
DX: J90 Pleural effusion, not elsewhere classified (principal); J18.1 Lobar pneumonia, unspecified organism; J44.0 Chronic obstructive pulmonary disease with (acute) lower respiratory infection; L03.113 Cellulitis of right upper limb; M19.90 Unspecified osteoarthritis, unspecified site; E78.00 Pure hypercholesterolemia, unspecified; K21.9 Gastro-esophageal reflux disease without esophagitis; J61 Pneumoconiosis due to asbestos and other mineral fibers; I10 Essential (primary) hypertension; Z96.653 Presence of artificial knee joint, bilateral; I25.2 Old myocardial infarction; Z95.5 Presence of coronary angioplasty implant and graft; Z85.828 Personal history of other malignant neoplasm of skin; Z95.1 Presence of aortocoronary bypass graft; Z87.891 Personal history of nicotine dependence; R06.02 Shortness of breath; K59.00 Constipation, unspecified
CPT/HCPCS: 32555; 71045; 80053; 83880; 84145; 84484; 85025; 85610; 85730; 87015; 87070; 87102; 87116; 87205; 87206; 87804; 88112; 88305; 89051; 93005; 94640; 94664; 96374; 99283; C1729; J0456; J0696; J1940; J7050

== ENCOUNTER 2018-05-27 22:08 | Inpatient (IN) ==
[2018-05-27 23:32] LABS: Baso % (Auto) 0.1 % (0.0-2.0); Eos % (Auto) 0.1 % (0.0-4.0); Hematocrit 40.5 % (39.0-51.0); Hemoglobin 13.6 gm/dL (13.0-17.0); Lymph # (Auto) 0.4 th/mm3 (1.0-4.8); Lymph % (Auto) 4.3 % (9.0-44.0); Mean Corpuscular HGB Conc 33.4 % (32.0-36.0); Mean Corpuscular Hemoglobin 31.1 pg (27.0-34.0); Mean Corpuscular Volume 92.9 fL (80.0-100.0); Mean Platelet Volume 7.4 fL (7.0-11.0); Mono # (Auto) 1.2 th/mm3 (0.0-0.9); Mono % (Auto) 12.8 % (0.0-8.0); Neut % (Auto) 82.7 % (16.0-70.0); Platelet Count 246 th/mm3 (150-450); Red Blood Count 4.36 mil/mm3 (4.50-5.90); Red Cell Distribution Width 18.4 % (11.6-17.2); White Blood Count 9.6 th/mm3 (4.0-11.0)
[2018-05-27] MEDS: Sod Chloride 0.9% Inj 1,000 ML IV.CONT SCH (23:33)
[2018-05-27] MEDS: Lidocaine/D5W 2000 mg/500 mL 2,000 MG/500 ML BAG IV.CONT SCH (23:33)
[2018-05-27 23:44] LABS: Activated Partial Thrombo Time 30.2 sec (24.3-30.1); INR 2.1 Ratio; Prothrombin Time 20.9 sec (9.8-11.6)
[2018-05-28 00:03] LABS: Albumin 3.1 g/dL (3.4-5.0); Anion Gap 9 meq/L (5-15); Aspartate Aminotransferase 58 U/L (15-37); Blood Urea Nitrogen 9 mg/dL (7-18); Carbon Dioxide 27.4 meq/L (21.0-32.0); Chloride 105 meq/L (98-107); Glomerular Filtration Rate 76 mL/min (>89); Glucose,Random 104 mg/dL (74-106); Magnesium 1.7 mg/dL (1.5-2.5); Potassium 3.9 meq/L (3.5-5.1); Sodium 141 meq/L (136-145)
[2018-05-28 00:04] LABS: Alanine Aminotransferase 46 U/L (12-78)
[2018-05-28 00:07] LABS: Alkaline Phosphatase 89 U/L (45-117); Troponin I 0.21 ng/mL (0.02-0.05)
[2018-05-28 00:09] LABS: Alcohol 10 mg/dL (0-5); Creatine Kinase 87 U/L (39-308)
--- NOTE | 2018-05-28 00:28 | ED ---
HPI General Chief complaint: Arrhythmia/Palpitations Stated complaint: Evac/Cardiac Complaint/Head Injury Time Seen by Provider: 05/27/18 22:57 Source: patient Mode of arrival: EMS Limitations: no limitations History of Present Illness HPI narrative: 83-year-old male presents to the emergency department from home by EMS transport after syncopal episode. According the patient he has felt well all day and then was preparing to cook roast bends over and then recalls awakening in the floor about 4 hours later. Patient sustained a laceration to the left cheek infraorbital area with soft tissue swelling. Patient does take Coumadin for history of atrial fibrillation. Patient is followed by clinic clerk Dr. Mcdaniel. Patient denies any preceding or post syncopal chest pain palpitations or shortness of breath. No sweats no nausea no vomiting. Patient states she has chronic neck pain. Patient presents with collar in place. Paramedics identified patient to be in atrial fibrillation but also identified patient to have frequent multifocal PVCs in route to the hospital therefore bolused him with lidocaine with some improvement of PVCs and then place patient on lidocaine infusion with near resolution of multifocal PVCs and decreased frequency of PVCs. Patient arrives here complaining of some facial pain. Patient again denies any recent febrile illness admits to drinking alcohol denies any chest pain palpitations shortness of breath sweats nausea vomiting referred neck jaw back shoulder arm pain. Patient denies any abdominal pain back pain pelvic pain or extremity injury or pain. Patient did sustain large skin tear abrasion to the right forearm. Patient states tetanus status he thinks is current and less than 5 years. Onset (ago): hour(s) Location: head, face, neck, right and upper extremity Radiation: non-radiation Severity: moderate Quality: dull Pain Consistency: intermittent Relieving factors: cold therapy Exacerbating factors: none Associated symptoms: headaches and syncope Treatments prior to arrival: other (IV fluids, lidocaine) Related Data Home Medications Medication Instructions Recorded Confirmed Unable to Obtain Home Meds 05/28/18 05/28/18 Allergies Allergy/AdvReac Type Severity Reaction Status Date / Time codeine Allergy Unknown Verified 11/07/17 08:05 Review of Systems ROS: all other systems reviewed are negative [facility] Medical History Medical History Afib (Acute) CHF (congestive heart failure) (Acute) COPD (chronic obstructive pulmonary disease) (Acute) Hypertension (Acute) Myocardial infarct (Acute) Surgical History Surgical History S/P triple vessel bypass (Acute) Family History Family History Other Family history normal Social History Social History Substance History: No History of Abuse Second Hand Smoke Exposure: No Smoking Status: Never smoker How Often Do You Have a Drink Containing Alcohol: Monthly or less Recent Travel in [facility] within the Last 8 Weeks: No Recent Out of Country Travel within the Last 8 Weeks: No Exam Narrative Exam Narrative: GENERAL: Well-developed well-nourished male in no acute distress no respiratory distress with bandage to the left face and forehead. SKIN: Focused skin assessment warm/dry. Large skin tear to the right forearm; 2.5 cm laceration to the left infraorbital soft tissue; bruising about the left forehead and face. HEAD: Atraumatic. Normocephalic. No scalp hematoma other than left forehead hematoma identified no abrasion no laceration to the scalp no bony abnormality to palpation. EYES: Pupils equal and round. No scleral icterus. No injection or drainage. Extraocular muscles intact. No periorbital rim bony step-off. ENT: No nasal bleeding or discharge. Mucous membranes pink and moist. No hemotympanum bilaterally. No postauricular ecchymosis no periorbital ecchymosis. NECK: Trachea midline. No JVD. No midline tenderness to direct palpation along the cervical spine no bony step-off c-collar resecured. CARDIOVASCULAR: Regular rate and rhythm with frequent skipped beats. No murmur appreciated. Bilateral radial and dorsalis pedis pulses 2+ to palpation. RESPIRATORY: No accessory muscle use. Clear to auscultation. Breath sounds equal bilaterally. GASTROINTESTINAL: Abdomen soft, non-tender, nondistended. Hepatic and splenic margins not palpable. MUSCULOSKELETAL: No obvious deformities. No clubbing. No cyanosis. No edema. NEUROLOGICAL: Awake and alert. GCS 15. No obvious cranial nerve deficits. Motor grossly within normal limits. Normal speech. PSYCHIATRIC: Appropriate mood and affect; insight and judgment normal. Procedures Laceration Laceration 1: Site: face Side (If applicable): left Size (cm): 2 Description: linear and clean Depth: simple, single layer Pre-repair:: wound explored, irrigated extensively and deep structures intact Skin layer closed with: dermabond Course Initial Documented Vital Signs Temperature 97.8 F 05/27/18 22:36 Pulse Rate 85 05/27/18 22:36 Respiratory Rate 21 05/27/18 22:36 Blood Pressure 127/64 05/27/18 22:36 Pulse Oximetry 97 05/27/18 22:36 Last Documented Vital Signs Temperature 97.8 F 05/28/18 07:33 Pulse Rate 88 05/28/18 07:33 Respiratory Rate 16 05/28/18 07:33 Blood Pressure 137/87 05/28/18 07:33 Pulse Oximetry 94 L 05/28/18 07:33 Medical Decision Making MDM Narrative Medical decision making narrative: frequent multifocal PVCs responded to IV bolus of lidocaine in [id number] male presents to the emergency department from home by EMS transport for evaluation of head and facial injuries status post syncopal episode possible seizure although no tongue trauma no noted incontinence. Patient admits to drinking alcohol. Patient identified in route to have lidocaine infusion. IV access obtained specimens collected and sent for resulting patient placed on playground monitor with continuous pulse oximetry Medical Screen Exam Complete: Yes Emergency Medical Condition: Yes Differential Diagnosis Differential Diagnosis: Syncope, arrhythmia seizure, ACS, closed head injury, ICH, cervical spine sprain strain fracture, sepsis, anemia Medical Records Medical records reviewed: Yes I reviewed the patient's medical records. Lab Data Lab results reviewed: Yes I reviewed the patient's lab results. Result diagrams: 05/27/18 23:00 05/27/18 23:00 Lab Results 05/27/18 05/27/18 05/27/18 Range/Units 23:00 23:00 23:00 WBC 9.6 (4.0-11.0) th/mm3 RBC 4.36 L (4.50-5.90) mil/mm3 Hgb 13.6 (13.0-17.0) gm/dL Hct 40.5 (39.0-51.0) % MCV 92.9 (80.0-100.0) fL MCH 31.1 (27.0-34.0) pg MCHC 33.4 (32.0-36.0) % RDW 18.4 H (11.6-17.2) % Plt Count 246 (150-450) th/mm3 MPV 7.4 (7.0-11.0) fL Neut % (Auto) 82.7 H (16.0-70.0) % Lymph % (Auto) 4.3 L (9.0-44.0) % [place] % (Auto) 12.8 H (0.0-8.0) % Eos % (Auto) 0.1 (0.0-4.0) % Baso % (Auto) 0.1 (0.0-2.0) % Neut # (Auto) 8.0 H (1.8-7.7) th/mm3 Lymph # (Auto) 0.4 L (1.0-4.8) th/mm3 [place] # (Auto) 1.2 H (0.0-0.9) th/mm3 Eos # (Auto) 0.0 (0.0-0.4) th/mm3 Baso # (Auto) 0.0 (0.0-0.2) th/mm3 WBC Differential . Differential Comment Auto diff final PT 20.9 H (9.8-11.6) sec INR 2.1 Ratio APTT 30.2 H (24.3-30.1) sec Sodium 141 (136-145) meq/L Potassium 3.9 (3.5-5.1) meq/L Chloride 105 (98-107) meq/L Carbon Dioxide 27.4 (21.0-32.0) meq/L Anion Gap 9 (5-15) meq/L BUN 9 (7-18) mg/dL Creatinine 0.94 (0.60-1.30) mg/dL Estimated GFR 76 L (>89) mL/min Random Glucose 104 (74-106) mg/dL Calcium 8.0 L (8.5-10.1) mg/dL Magnesium 1.7 (1.5-2.5) mg/dL Total Bilirubin 0.6 (0.2-1.0) mg/dL AST 58 H (15-37) U/L ALT 46 (12-78) U/L Alkaline Phosphatase 89 (45-117) U/L Total Creatine Kinase 87 (39-308) U/L Troponin I 0.21 H (0.02-0.05) ng/mL B-Natriuretic Peptide (0-100) pg/mL Total Protein 7.0 (6.4-8.2) g/dL Albumin 3.1 L (3.4-5.0) g/dL Serum Alcohol 10 H (0-5) mg/dL Blood Type Antibody Screen 05/27/18 05/27/18 05/28/18 Range/Units 23:00 23:00 07:22 WBC (4.0-11.0) th/mm3 RBC (4.50-5.90) mil/mm3 Hgb (13.0-17.0) gm/dL Hct (39.0-51.0) % MCV (80.0-100.0) fL MCH (27.0-34.0) pg MCHC (32.0-36.0) % RDW (11.6-17.2) % Plt Count (150-450) th/mm3 MPV (7.0-11.0) fL Neut % (Auto) (16.0-70.0) % Lymph % (Auto) (9.0-44.0) % [place] % (Auto) (0.0-8.0) % Eos % (Auto) (0.0-4.0) % Baso % (Auto) (0.0-2.0) % Neut # (Auto) (1.8-7.7) th/mm3 Lymph # (Auto) (1.0-4.8) th/mm3 [place] # (Auto) (0.0-0.9) th/mm3 Eos # (Auto) (0.0-0.4) th/mm3 Baso # (Auto) (0.0-0.2) th/mm3 WBC Differential Differential Comment PT (9.8-11.6) sec INR Ratio APTT (24.3-30.1) sec Sodium (136-145) meq/L Potassium (3.5-5.1) meq/L Chloride (98-107) meq/L Carbon Dioxide (21.0-32.0) meq/L Anion Gap (5-15) meq/L BUN (7-18) mg/dL Creatinine (0.60-1.30) mg/dL Estimated GFR (>89) mL/min Random Glucose (74-106) mg/dL Calcium (8.5-10.1) mg/dL Magnesium (1.5-2.5) mg/dL Total Bilirubin (0.2-1.0) mg/dL AST (15-37) U/L ALT (12-78) U/L Alkaline Phosphatase (45-117) U/L Total Creatine Kinase 90 (39-308) U/L Troponin I 0.88 H* (0.02-0.05) ng/mL B-Natriuretic Peptide 139 H (0-100) pg/mL Total Protein (6.4-8.2) g/dL Albumin (3.4-5.0) g/dL Serum Alcohol (0-5) mg/dL Blood Type B Positive Antibody Screen Negative Imaging Data Radiologist's impression: Cervical Spine CT 05/27/18 22:58 CONCLUSION: 1. No fracture is identified. Degenerative changes are present, as above. 2. There is an apparent large right bulla at the right lung apex with pleural based calcification bilaterally. Head CT 05/27/18 22:58 CONCLUSION: 1. Focal left frontal scalp soft tissue swelling. No fracture or acute intracranial abnormality is identified. 2. Chronic changes include generalized atrophy and mild periventricular white matter low-attenuation. . Face CT 05/27/18 23:00 CONCLUSION: 1. Left frontal scalp and periorbital soft tissue swelling. There is an ovoid high density structure medial to the left globe measuring 12 x 6 mm, possibly representing a periorbital hematoma. It has no significant mass effect on the adjacent structures. 2. No fracture is identified. ECG Data EKG Prior to Arrival: Yes Attestation: I personally reviewed and interpreted this ECG as follows: Prior ECG tracings: not available for review Interpretation: EKG: atrial fibrillation rate 84 [id number] [facility] Discharge Plan Discharge Disposition Patient Disposition: 30 Still Patient Discharge Condition Condition: Stable Discharge Details Diagnosis: Multifocal PVCs, Atrial flutter, Head injury, Contusion of face Physicians Team ED Provider: Agata Jarrett ED Midlevel Provider: Marcial Ramírez Primary Care Provider: UNKNOWN, Attending Provider: Chela Bill Other Providers: Ayanna Prajapati ; [employer] Status ED Status: Left Department Discharge Information Discharge Date/Time: 05/28/18 05:06
--- NOTE | 2018-05-28 00:30 | CT ---
EXAM DATE: 05/28/2018 12:18 AM EDT AGE/SEX: 83 years / Male INDICATIONS: Trauma; fall. CLINICAL DATA: This is the patient's initial encounter. Patient reports that signs and symptoms have been present for 1 day and indicates a pain score of 7/10. MEDICAL/SURGICAL HISTORY: Non-responsive. Non-responsive. RADIATION DOSE: 20.48 CTDI (mGy) COMPARISON: No prior exams available for comparison. TECHNIQUE: Contiguous axial images were obtained using helical multirow detector technique. The vol umetric data was post-processed with multiplanar reconstruction in oblique axial, sagittal, and coron al planes. Using automated exposure control and adjustment of the mA and/or kV according to patient s ize, radiation dose was kept as low as reasonably achievable to obtain optimal diagnostic quality sujatha ges. DICOM format image data is available electronically for review and comparison. FINDINGS: No fracture or dislocation is identified. There is normal sagittal spinal alignment without anterolis thesis or retrolisthesis. The atlantoaxial relationship is within normal limits and there is no preve rtebral soft tissue swelling. Endplate osteophytes are present anteriorly at multiple levels and ther e is degenerative disc disease at C4-C5 and extending through C6-C7. No large disc herniation is iden tified. The visualized paraspinous structures demonstrate no acute abnormality. There is a large bulla at the right lung apex with pleural base calcification at the apices of both hemithoraces. Air is present w ithin the veins near the thoracic inlet. CONCLUSION: 1. No fracture is identified. Degenerative changes are present, as above. 2. There is an apparent large right bulla at the right lung apex with pleural based calcification bi laterally. Electronically signed by: Wily Goodman MD 05/28/2018 12:29 AM EDT
--- NOTE | 2018-05-28 00:33 | CT ---
EXAM DATE: 05/28/2018 12:17 AM EDT AGE/SEX: 83 years / Male INDICATIONS: Trauma; fall. CLINICAL DATA: This is the patient's initial encounter. Patient reports that signs and symptoms have been present for 1 day and indicates a pain score of 6/10. MEDICAL/SURGICAL HISTORY: Non-responsive. Non-responsive. RADIATION DOSE: 66.34 CTDI (mGy) COMPARISON: No prior exams available for comparison. TECHNIQUE: CT of the head without contrast. Using automated exposure control and adjustment of the mA and/or kV according to patient size, radiation dose was kept as low as reasonably achievable to ob tain optimal diagnostic quality images. DICOM format image data is available electronically for revi ew and comparison. FINDINGS: Cerebrum: There is mild generalized atrophy and ventricles are normal given the degree of atrophy. M ild periventricular white matter change is present. No midline shift, mass lesion, hemorrhage or acu te infarction. No extraaxial fluid collections are seen. Posterior Fossa: The cerebellum and brainstem demonstrate no acute abnormality. The 4th ventricle is midline. The cerebellopontine angle is within normal limits. Extracranial: There is left frontal scalp focal soft tissue swelling. Skull: The calvaria is intact. No skull fracture. CONCLUSION: 1. Focal left frontal scalp soft tissue swelling. No fracture or acute intracranial abnormality is i dentified. 2. Chronic changes include generalized atrophy and mild periventricular white matter low-attenuation . . Electronically signed by: iWly Goodman MD 05/28/2018 12:31 AM EDT
--- NOTE | 2018-05-28 00:38 | CT ---
EXAM DATE: 05/28/2018 12:17 AM EDT AGE/SEX: 83 years / Male INDICATIONS: Trauma; fall. CLINICAL DATA: This is the patient's initial encounter. Patient reports that signs and symptoms have been present for 1 day and indicates a pain score of 5/10. MEDICAL/SURGICAL HISTORY: Non-responsive. Non-responsive. RADIATION DOSE: 21.96 CTDI (mGy) COMPARISON: No prior exams available for comparison. TECHNIQUE: Contiguous images in the axial and coronal planes were obtained using helical multirow de tector technique. Using automated exposure control and adjustment of the mA and/or kV according to p atient size, radiation dose was kept as low as reasonably achievable to obtain optimal diagnostic moe lity images. DICOM format image data is available electronically for review and comparison. FINDINGS: Orbits: No fracture is identified. However, there is an ovoid area of high density measuring 12 x 6 mm medial to the left globe and inferior to the medial rectus muscle. Lenses are normally located. Nasal Bones: There has been prior sinus surgery with resection of the middle turbinates and bilatera l uncinectomy. Zygomatic Arches: Symmetric without fracture. Sinuses: The maxillary, ethmoid, and frontal sinuses are intact. No air-fluid levels seen. Nasal Cavity: The nasal septum is intact and midline. Soft Tissues: There is left frontal scalp and periorbital soft tissue swelling. Other: The mandible and pterygoid plates are intact. Visualized intracranial structures demonstrate n o acute abnormality. CONCLUSION: 1. Left frontal scalp and periorbital soft tissue swelling. There is an ovoid high density structure medial to the left globe measuring 12 x 6 mm, possibly representing a periorbital hematoma. It has n o significant mass effect on the adjacent structures. 2. No fracture is identified. Electronically signed by: Wily Goodman MD 05/28/2018 12:37 AM EDT
[2018-05-28] MEDS ORDERED: Sodium Chlor 0.9% Inj 250 ML IV.SIG SCH (02:00)
[2018-05-28] MEDS ORDERED: Bisacodyl 10 MG Supp RECTAL PRN (02:00)
--- NOTE | 2018-05-28 02:36 | P.HP ---
History of Present Illness Service: [facility] Primary Care Physician: UNKNOWN History of Present Illness: 83-year-old male with past medical history significant for atrial fibrillation anticoagulated on Coumadin, CHF, COPD, hypertension, CAD status post [place] presents to the emergency department for evaluation of a syncopal episode. 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 He reports waking up on the floor approximately 4 hours later. He sustained multiple lacerations to both upper extremities and his left eye/forehead. The patient denies any preceding palpitations or lightheadedness. He denies any chest pain or shortness of breath. He called 911 and paramedics reported the patient was in A. fib with frequent multifocal PVCs. The patient was bolused with lidocaine in the field and then started on a lidocaine infusion. During his evaluation in the emergency department attempts to wean the lidocaine resulted in return of frequent PVCs. The lidocaine infusion was continued. Patient denies any abdominal pain. No nausea/vomiting/diarrhea. No fevers/chills. No lateralizing signs/symptoms. Inpatient Certification: I certify that the inpatient services were ordered in accordance with Medicare regulations governing the order. 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 / EMT - Medical History Medical History: Medical History (Last Updated 05/27/18 @ 22:47 by Asmita Lackey) Afib CHF (congestive heart failure) COPD (chronic obstructive pulmonary disease) Hypertension Myocardial infarct - Surgical History Surgical History: Surgical History (Last Updated 05/27/18 @ 22:47 by Asmita Lackey) S/P triple vessel bypass - Family History Family History: Family History (Last Updated 05/28/18 @ 02:22 by Tatyana Lopez MD) Other Family history normal - Tobacco History Second Hand Smoke Exposure: No Tobacco Use In Past 30 Days: No Smoking Status: Never smoker - Alcohol History How Often Do You Have a Drink Containing Alcohol: Monthly or less - Substance Use History Substance History: No History of Abuse - Travel History Recent Travel in the [place] Within the Last 8 Weeks: No Recent Travel Out of the Country Within the Last 8 Weeks: No - Immunization History Tetanus Immunization: Unsure Hx Influenza Vaccine This Season: No Medications and Allergies Active Medications: Active Medications Acetaminophen (Tylenol) 650 mg PO Q4H PRN PRN Reason: Temp > 100.4 Al Hydroxide/Mg Hydroxide (Milk Of Magnesia Liq) 30 ml PO Q12H PRN PRN Reason: Mild Constipation Bisacodyl (Dulcolax Supp) 10 mg RECTAL DAILY PRN PRN Reason: SEVERE CONSITIPATION Lidocaine HCl/Dextrose (Lidocaine/D5w 2000 Mg/500 Ml Premix Inj) 2,000 mg in 500 mls @ 30 mls/hr IV.CONT .[id number] [facility] Last Admin: 05/27/18 23:33 Dose: 2 mg/min, 30 mls/hr Sodium Chloride (Ns Inj) 1,000 mls @ 125 mls/hr IV.CONT .Q8H MARIANO Stop: 05/28/18 06:59 Last Admin: 05/27/18 23:33 Dose: 125 mls/hr Sodium Chloride (Ns Inj) 250 mls @ 0 mls/hr IV.SIG BOLUS [facility] Lactulose (Lactulose Liq) 30 ml PO DAILY PRN PRN Reason: SEVERE CONSITIPATION Ondansetron HCl (Zofran Inj) 4 mg IV.PUSH Q6H PRN PRN Reason: NAUSEA OR VOMITING Senna/Docusate Sodium (Oxana-Colace) 1 tab PO BID [facility] Sennosides (Senokot) 17.2 mg PO Q12H PRN PRN Reason: Moderate Constipation Allergies Allergy/AdvReac Type Severity Reaction Status Date / Time codeine Allergy Unknown Verified 11/07/17 08:05 Home Medications Medication Instructions Recorded Confirmed Type Unable to Obtain Home Meds 05/28/18 05/28/18 History Exam Vital signs: Vital Signs 05/27/18 22:36 05/28/18 01:52 Temperature 97.8 F Pulse Rate 85 89 Respiratory Rate 21 22 Blood Pressure 127/64 126/76 Pulse Oximetry 97 97 Intake & Output 05/27/18 05/27/18 05/28/18 06:59 18:59 06:59 Weight 83.915 kg Narrative: Gen.: No acute distress Head: Normocephalic. Atraumatic. EENT: Pupils equal round and reactive to light. Nose without drainage. Airway intact. Throat without injection. Cardiovascular: Regular rate. Irregularly irregular rhythm. No murmurs, rubs or gallops. Respiratory: Lungs clear to auscultation bilaterally. No wheezes or rhonchi. Abdomen: Soft, nontender, nondistended. No peritoneal signs. Musculoskeletal: No gross deformities. No edema. Skin: No obvious rashes or erythema. Neuro: Sensory and motor grossly intact. Cranial nerves II through XII grossly intact. Results - Labs CBC & Chem 7: 05/27/18 23:00 05/27/18 23:00 Labs: Laboratory Results - last 24 hr 05/27/18 05/27/18 05/27/18 23:00 23:00 23:00 WBC 9.6 RBC 4.36 L Hgb 13.6 Hct 40.5 MCV 92.9 MCH 31.1 MCHC 33.4 RDW 18.4 H Plt Count 246 MPV 7.4 Neut % (Auto) 82.7 H Lymph % (Auto) 4.3 L Carson % (Auto) 12.8 H Eos % (Auto) 0.1 Baso % (Auto) 0.1 Neut # (Auto) 8.0 H Lymph # (Auto) 0.4 L Carson # (Auto) 1.2 H Eos # (Auto) 0.0 Baso # (Auto) 0.0 WBC Differential . Differential Comment Auto diff final PT 20.9 H INR 2.1 APTT 30.2 H Sodium 141 Potassium 3.9 Chloride 105 Carbon Dioxide 27.4 Anion Gap 9 BUN 9 Creatinine 0.94 Estimated GFR 76 L Random Glucose 104 Calcium 8.0 L Magnesium 1.7 Total Bilirubin 0.6 AST 58 H ALT 46 Alkaline Phosphatase 89 Total Creatine Kinase 87 Troponin I 0.21 H B-Natriuretic Peptide Total Protein 7.0 Albumin 3.1 L Serum Alcohol 10 H Blood Type Antibody Screen 05/27/18 05/27/18 23:00 23:00 WBC RBC Hgb Hct MCV MCH MCHC RDW Plt Count MPV Neut % (Auto) Lymph % (Auto) Carson % (Auto) Eos % (Auto) Baso % (Auto) Neut # (Auto) Lymph # (Auto) Carson # (Auto) Eos # (Auto) Baso # (Auto) WBC Differential Differential Comment PT INR APTT Sodium Potassium Chloride Carbon Dioxide Anion Gap BUN Creatinine Estimated GFR Random Glucose Calcium Magnesium Total Bilirubin AST ALT Alkaline Phosphatase Total Creatine Kinase Troponin I B-Natriuretic Peptide 139 H Total Protein Albumin Serum Alcohol Blood Type B Positive Antibody Screen Negative - Imaging Impressions Cervical Spine CT 05/27/18 22:58 CONCLUSION: 1. No fracture is identified. Degenerative changes are present, as above. 2. There is an apparent large right bulla at the right lung apex with pleural based calcification bilaterally. Head CT 05/27/18 22:58 CONCLUSION: 1. Focal left frontal scalp soft tissue swelling. No fracture or acute intracranial abnormality is identified. 2. Chronic changes include generalized atrophy and mild periventricular white matter low-attenuation. . Face CT 05/27/18 23:00 CONCLUSION: 1. Left frontal scalp and periorbital soft tissue swelling. There is an ovoid high density structure medial to the left globe measuring 12 x 6 mm, possibly representing a periorbital hematoma. It has no significant mass effect on the adjacent structures. 2. No fracture is identified. Caprini VTE Risk Assessment Caprini VTE Risk Assessment: Moderate/High Risk (score >= 2) Caprini Risk Assessment Model: Point Value = 1 Point Value = 2 Point Value = 3 Point Value = 5 Age 41-60 Minor surgery BMI > 25 kg/m2 Swollen legs Varicose veins or History of unexplained or recurrent spontaneous Oral contraceptives or hormone replacement Sepsis (< 1 month) Serious lung disease, including pneumonia (< 1 month) Abnormal pulmonary function Acute myocardial infarction Congestive heart failure (< 1 month) History of inflammatory bowel disease Medical patient at bed rest Age 61-74 Arthroscopic surgery Major open surgery (> 45 min) Laparoscopic surgery (> 45 min) Malignancy Confined to bed (> 72 hours) Immobilizing plaster cast Central venous access Age >= 75 History of VTE Family history of VTE Factor V Leiden Prothrombin [id number] Lupus anticoagulant Anticardiolipin antibodies Elevated serum homocysteine Heparin-induced thrombocytopenia Other congenital or acquired thrombophilia Stroke (< 1 month) Elective arthroplasty Hip, pelvis, or leg fracture Acute spinal cord injury (< 1 month) Prophylaxis Regimen: Total Risk Factor Score Risk Level Prophylaxis Regimen 0-1 Low Early ambulation 2 Moderate Order ONE of the following: *Sequential Compression Device (SCD) *Heparin 5000 units SQ BID 3-4 Higher Order ONE of the following medications: *Heparin 5000 units SQ TID *Enoxaparin/Lovenox 40 mg SQ daily (WT < 150 kg, CrCl > 30 mL/min) *Enoxaparin/Lovenox 30 mg SQ daily (WT < 150 kg, CrCl > 10-29 mL/min) *Enoxaparin/Lovenox 30 mg SQ BID (WT < 150 kg, CrCl > 30 mL/min) AND/OR *Sequential Compression Device (SCD) 5 or more Highest Order ONE of the following medications: *Heparin 5000 units SQ TID (Preferred with Epidurals) *Enoxaparin/Lovenox 40 mg SQ daily (WT < 150 kg, CrCl > 30 mL/min) *Enoxaparin/Lovenox 30 mg SQ daily (WT < 150 kg, CrCl > 10-29 mL/min) *Enoxaparin/Lovenox 30 mg SQ BID (WT < 150 kg, CrCl > 30 mL/min) AND *Sequential Compression Device (SCD) Assessment and Plan - Plan Assessment/plan: 1. Atrial fibrillation/PVCs Rate controlled Continue lidocaine infusion Cardiology consulted, appreciate recommendations Continue home medications once reconciled Continue anticoagulation with Coumadin 2. Elevated troponin May be secondary to demand EKG without signs of ischemia, personally reviewed Serial troponins/EKGs 3. Syncope Patient lost consciousness while bending over in the kitchen Orthostatic vital signs May be cardiac in origin 4. Hypertension/CAD Continue home medications once reconciled 5. COPD Duo nebs as needed FEN NPO Electrolytes: monitor and replete prn Coumadin
[2018-05-28] MEDS: Lidocaine/D5W 2000 mg/500 mL 2,000 MG/500 ML BAG IV.CONT SCH (06:31)
[2018-05-28] MEDS: Sod Chloride 0.9% Inj 1,000 ML IV.CONT SCH (06:32)
--- NOTE | 2018-05-28 08:14 | P.PNIM ---
Subjective Interval history: Follow-up for atrial fibrillation Patient still in A. fib, controlled rhythm. Patient was sleeping, easily arousable. Denies any chest pain or palpitations prior to the syncopal attack. Presently, so denies any chest pain, not short of breath, no nausea or vomiting. Denies any headache. Physical Exam Vital signs: Vital Signs 05/27/18 22:36 05/28/18 01:52 05/28/18 02:51 Temperature 97.8 F Pulse Rate 85 89 Respiratory Rate 21 22 Blood Pressure 127/64 126/76 Pulse Oximetry 97 97 97 05/28/18 05:00 05/28/18 06:00 05/28/18 07:15 Temperature 98.4 F Pulse Rate 102 H Respiratory Rate 20 Blood Pressure 143/91 H Pulse Oximetry 94 L 96 95 05/28/18 07:26 05/28/18 07:28 05/28/18 07:33 Temperature 97.8 F Pulse Rate 95 H 88 Respiratory Rate 16 16 Blood Pressure 137/87 Pulse Oximetry 94 L Intake & Output 05/27/18 05/28/18 05/28/18 18:59 06:59 18:59 Intake Total 1500 / 1500 Balance 1500 / 1500 Weight 83.915 kg Intake: IV 1500 / 1500 Lidocaine/D5W 2000 mg/500 mL 500 / 500 Premix Inj 2,000 mg In 500 ml @ 2 MG/MIN 30 mls/hr IV.CONT . [id number] [facility] Rx#:[id number] NS Inj 1,000 ML @ 125 mls/hr IV 1000 / 1000 .CONT .Q8H [facility] Rx#:[id number] Narrative: Gen.: No acute distress Head: Normocephalic. Left periorbital swelling and ecchymosis left forehead and face, left forehead hematoma EENT: Pupils equal round and reactive to light. Cardiovascular: Regular rate. Irregularly irregular rhythm. Soft murmur. Respiratory: Lungs clear to auscultation bilaterally. No wheezes or rhonchi. Abdomen: Soft, nontender, nondistended. No peritoneal signs. Musculoskeletal: No gross deformities. No edema. Right forearm positive for skin tear, 2.5 cm laceration left infraorbital soft tissue Skin: No obvious rashes or erythema. Neuro: Awake, alert, oriented to place, person, birthday. Moves extremities. No focal deficits. Results - Labs CBC & Chem 7: 05/27/18 23:00 05/27/18 23:00 Laboratory Results - last 24 hr 05/27/18 05/27/18 05/27/18 23:00 23:00 23:00 WBC 9.6 RBC 4.36 L Hgb 13.6 Hct 40.5 MCV 92.9 MCH 31.1 MCHC 33.4 RDW 18.4 H Plt Count 246 MPV 7.4 Neut % (Auto) 82.7 H Lymph % (Auto) 4.3 L Whitman % (Auto) 12.8 H Eos % (Auto) 0.1 Baso % (Auto) 0.1 Neut # (Auto) 8.0 H Lymph # (Auto) 0.4 L Whitman # (Auto) 1.2 H Eos # (Auto) 0.0 Baso # (Auto) 0.0 WBC Differential . Differential Comment Auto diff final PT 20.9 H INR 2.1 APTT 30.2 H Sodium 141 Potassium 3.9 Chloride 105 Carbon Dioxide 27.4 Anion Gap 9 BUN 9 Creatinine 0.94 Estimated GFR 76 L Random Glucose 104 Calcium 8.0 L Magnesium 1.7 Total Bilirubin 0.6 AST 58 H ALT 46 Alkaline Phosphatase 89 Total Creatine Kinase 87 Troponin I 0.21 H B-Natriuretic Peptide Total Protein 7.0 Albumin 3.1 L Serum Alcohol 10 H Blood Type Antibody Screen 05/27/18 05/27/18 23:00 23:00 WBC RBC Hgb Hct MCV MCH MCHC RDW Plt Count MPV Neut % (Auto) Lymph % (Auto) Whitman % (Auto) Eos % (Auto) Baso % (Auto) Neut # (Auto) Lymph # (Auto) Whitman # (Auto) Eos # (Auto) Baso # (Auto) WBC Differential Differential Comment PT INR APTT Sodium Potassium Chloride Carbon Dioxide Anion Gap BUN Creatinine Estimated GFR Random Glucose Calcium Magnesium Total Bilirubin AST ALT Alkaline Phosphatase Total Creatine Kinase Troponin I B-Natriuretic Peptide 139 H Total Protein Albumin Serum Alcohol Blood Type B Positive Antibody Screen Negative - Imaging Impressions Cervical Spine CT 05/27/18 22:58 CONCLUSION: 1. No fracture is identified. Degenerative changes are present, as above. 2. There is an apparent large right bulla at the right lung apex with pleural based calcification bilaterally. Head CT 05/27/18 22:58 CONCLUSION: 1. Focal left frontal scalp soft tissue swelling. No fracture or acute intracranial abnormality is identified. 2. Chronic changes include generalized atrophy and mild periventricular white matter low-attenuation. . Face CT 05/27/18 23:00 CONCLUSION: 1. Left frontal scalp and periorbital soft tissue swelling. There is an ovoid high density structure medial to the left globe measuring 12 x 6 mm, possibly representing a periorbital hematoma. It has no significant mass effect on the adjacent structures. 2. No fracture is identified. Assessment and Plan - Plan 83-year-old male with past medical history significant for atrial fibrillation anticoagulated on Coumadin, CHF, COPD, hypertension, CAD status post [place] presents to the emergency department for evaluation of a syncopal episode. Atrial fibrillation, PVCs, RVR-presently rate controlled, on lidocaine drip, cardiology input pending, continue Coumadin for anticoagulation. INR therapeutic Fall secondary to Syncope-became unconscious while bending over in the kitchen, be secondary to atrial fibrillation, orthostatic vital signs when patient is able to stand up. Consult physical therapy. Cervical spine CT, no fracture. Head CT showed left frontal scalp tissue swelling, chronic changes including generalized atrophy but no acute intracranial abnormality. Face CT showed left frontal scalp and periorbital soft tissue swelling, periorbital hematoma but otherwise no significant mass-effect or fracture. Demand mediated troponin elevation-EKG without signs of ischemia, troponin 0 0.2 , serial troponin pending, likely demand mediated. Awaiting cardiology input. COPD-duo nebs as needed Heart healthy diet DVT prophylaxis: Coumadin Physical therapy evaluation Discussed with son
[2018-05-28 08:34] LABS: Troponin I 0.88 ng/mL (0.02-0.05)
[2018-05-28] MEDS: Senna/Docusate Sodium 8.6/50 MG Tablet PO SCH (09:12)
[2018-05-28] MEDS ORDERED: dilTIAZem Inj 125 MG in Sodium Chlor 0.9% Inj 100 ML IV.CONT PRN (11:19)
--- NOTE | 2018-05-28 11:40 | P.CONCA ---
History of Present Illness Primary Care Provider: UNKNOWN Chief Complaint: syncope History of Present Illness: 83 year old hx of chronic atrial fibrillation, CAD s/p CABG (WRIGHT-LAD, SVG to OM1 and OM2), HTN, HLD who presented to the ER after a syncopal episode. According to the patient, he was preparing his supper and had a few drinks as he was in the process. He recalls bending over to reach something on the ground and subsequently hit his head on the ground and lost consciousness. He does not believe he experienced any chest pain, palpatations, diaphoresis, or any premonitory symptoms. No urine incontinence. The patient was recently seen by Dr. Mcdaniel early April. He had a holter at that time showing good rate control of his Afib. His last Lexiscan in 2017 did not show any ischemia. When EMS arrived he was in afib with RVR and was placed on a lidocaine gtt. Apparently, everytime this was discontinued, the patient had PVCs. Currently the patient has HRs in the 100s. Currently, the patient is somewhat somnolent but able to answer questions. 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 - Medical History Medical History: Medical History (Last Reviewed 05/28/18 @ 09:56 by Senait Ybarra) Afib CHF (congestive heart failure) COPD (chronic obstructive pulmonary disease) Hypertension Myocardial infarct - Surgical History Surgical History: Surgical History (Last Reviewed 05/28/18 @ 09:56 by Senait Ybarra) S/P triple vessel bypass - Family History Family History: Family History (Last Updated 05/28/18 @ 02:22 by Tatyana Lopez MD) Other Family history normal - Tobacco History Second Hand Smoke Exposure: No Tobacco Use In Past 30 Days: No Smoking Status: Never smoker - Alcohol History How Often Do You Have a Drink Containing Alcohol: Monthly or less - Substance Use History Substance History: No History of Abuse - Travel History Recent Travel in the [place] Within the Last 8 Weeks: No Recent Travel Out of the Country Within the Last 8 Weeks: No - Immunization History Tetanus Immunization: Unsure Hx Influenza Vaccine This Season: No Medications and Allergies Active Medications: Active Medications Acetaminophen (Tylenol) 650 mg PO Q4H PRN PRN Reason: Temp > 100.4 Al Hydroxide/Mg Hydroxide (Milk Of Magnesia Liq) 30 ml PO Q12H PRN PRN Reason: Mild Constipation Albuterol (Duoneb Neb (Prn)) 1 ampul NEB Q4HR NEB PRN PRN Reason: SOB/Wheezing Bisacodyl (Dulcolax Supp) 10 mg RECTAL DAILY PRN PRN Reason: SEVERE CONSITIPATION Sodium Chloride (Ns Inj) 250 mls @ 0 mls/hr IV.SIG BOLUS [facility] Diltiazem HCl 125 mg/ Sodium (Chloride) 125 mls @ 5 mls/hr IV.CONT TITRATE PRN ; Protocol PRN Reason: Per Protocol Lactulose (Lactulose Liq) 30 ml PO DAILY PRN PRN Reason: SEVERE CONSITIPATION Metoprolol Tartrate (Lopressor) 25 mg PO BID [facility] Ondansetron HCl (Zofran Inj) 4 mg IV.PUSH Q6H PRN PRN Reason: NAUSEA OR VOMITING Senna/Docusate Sodium (Oxana-Colace) 1 tab PO BID [facility] Last Admin: 05/28/18 09:12 Dose: Not Given Sennosides (Senokot) 17.2 mg PO Q12H PRN PRN Reason: Moderate Constipation Allergies Allergy/AdvReac Type Severity Reaction Status Date / Time codeine Allergy Unknown Verified 11/07/17 08:05 Home Medications Medication Instructions Recorded Confirmed Type Unable to Obtain Home Meds 05/28/18 05/28/18 History Exam Vital signs: Vital Signs 05/27/18 22:36 05/28/18 01:52 05/28/18 02:51 Temperature 97.8 F Pulse Rate 85 89 Respiratory Rate 21 22 Blood Pressure 127/64 126/76 Pulse Oximetry 97 97 97 05/28/18 05:00 05/28/18 06:00 05/28/18 07:15 Temperature 98.4 F Pulse Rate 102 H Respiratory Rate 20 Blood Pressure 143/91 H Pulse Oximetry 94 L 96 95 05/28/18 07:26 05/28/18 07:28 05/28/18 07:33 Temperature 97.8 F Pulse Rate 95 H 88 Respiratory Rate 16 16 Blood Pressure 137/87 Pulse Oximetry 94 L Intake & Output 05/27/18 05/28/18 05/28/18 18:59 06:59 18:59 Intake Total 1500 / 1500 Balance 1500 / 1500 Weight 83.915 kg Intake: IV 1500 / 1500 Lidocaine/D5W 2000 mg/500 mL 500 / 500 Premix Inj 2,000 mg In 500 ml @ 2 MG/MIN 30 mls/hr IV.CONT . [id number] [facility] Rx#:[id number] NS Inj 1,000 ML @ 125 mls/hr IV 1000 / 1000 .CONT .Q8H [facility] Rx#:[id number] - Constitutional mild distress - Routine HEENT Exam Head: Present: hematoma Eye: Present: EOMI, periorbital swelling - Routine Neck Exam Present: supple, full ROM. Absent: JVD - Routine Chest/Breast/Axilla Exam Chest wall: Absent: tenderness - Routine Respiratory Exam Present: crackles (mild at base) - Routine Cardiovascular Exam Present: S1, S2, irregularly irregular - Routine Abdominal Exam Present: soft, normoactive bowel sounds. Absent: tenderness - Routine Extremities Exam Absent: edema - Routine Skin Exam Absent: ecchymosis - Routine Neurological Exam Present: alert, oriented X3 (grossly nonfocal), tremors Results 05/27/18 23:00 05/27/18 23:00 Cardiac Enzymes 05/27/18 05/27/18 05/28/18 Range/Units 23:00 23:00 07:22 AST 58 H (15-37) U/L Troponin I 0.21 H 0.88 H* (0.02-0.05) ng/mL B-Natriuretic Peptide 139 H (0-100) pg/mL Coagulation 05/27/18 05/27/18 Range/Units 23:00 23:00 PT 20.9 H (9.8-11.6) sec APTT 30.2 H (24.3-30.1) sec B-Natriuretic Peptide 139 H (0-100) pg/mL CBC 05/27/18 Range/Units 23:00 WBC 9.6 (4.0-11.0) th/mm3 RBC 4.36 L (4.50-5.90) mil/mm3 Hgb 13.6 (13.0-17.0) gm/dL Hct 40.5 (39.0-51.0) % Plt Count 246 (150-450) th/mm3 Neut # (Auto) 8.0 H (1.8-7.7) th/mm3 Lymph # (Auto) 0.4 L (1.0-4.8) th/mm3 Fisher # (Auto) 1.2 H (0.0-0.9) th/mm3 Eos # (Auto) 0.0 (0.0-0.4) th/mm3 Baso # (Auto) 0.0 (0.0-0.2) th/mm3 Comprehensive Metabolic Panel 05/27/18 Range/Units 23:00 Sodium 141 (136-145) meq/L Potassium 3.9 (3.5-5.1) meq/L Chloride 105 (98-107) meq/L Carbon Dioxide 27.4 (21.0-32.0) meq/L BUN 9 (7-18) mg/dL Creatinine 0.94 (0.60-1.30) mg/dL Calcium 8.0 L (8.5-10.1) mg/dL AST 58 H (15-37) U/L ALT 46 (12-78) U/L Alkaline Phosphatase 89 (45-117) U/L Total Protein 7.0 (6.4-8.2) g/dL Albumin 3.1 L (3.4-5.0) g/dL Intake and Output 05/27/18 05/28/18 05/28/18 22:59 06:59 14:59 Intake Total 1500 / 1500 Balance 1500 / 1500 Intake: IV 1500 / 1500 Lidocaine/D5W 2000 mg/500 mL 500 / 500 Premix Inj 2,000 mg In 500 ml @ 2 MG/MIN 30 mls/hr IV.CONT . [id number] [facility] Rx#:[id number] NS Inj 1,000 ML @ 125 mls/hr IV 1000 / 1000 .CONT .Q8H [facility] Rx#:[id number] Other: Weight 83.915 kg EKG interpretations - EKG EKG shows: atrial fibrillation Assessment and Plan - Plan Syncope-most likely vasovagal in the context of positional change and ETOH use. However, can not rule out arrythmia, cardioembolic stroke, TIA. Will perform a Transthoracic Echo. MRI pending. Continue monitoring for ventricular arrhythmias. Atrial fibrillation- d/c lidocaine gtt. given confusion will order lidocaine level. Plan to start diltiazem gtt and place patient on po metoprolol. He is not on an AV natalia agent at home. Holding coumadin for now given recent facial trauma. Hx of CHF-EF 45% on prior nuclear scan. Will order Transthoracic Echo. restart Lasix 40mg po BID Hx of CAD s/p CABG-negative nuclear 2017. No chest pain. continue statin. ideally should be on ASA 81mg when more stable. Elevated troponins 2/2 to demand ischemia
[2018-05-28] MEDS: Metoprolol Tartrate 25 MG Tablet PO SCH (12:14)
--- NOTE | 2018-05-28 12:30 | ECG ---
Date Performed: 05/28/2018 Time Performed: 06:15:06 PTAGE: 83 years EKG: Atrial fibrillation. Left axis deviation Septal T wave changes are nonspecific Abnormal ECG Since PREVIOUS TRACING , no significant change noted PREVIOUS TRACIN05/27/2018 22.41.26 DOCTOR: Savanah Eisenberg Interpretating Date/Time 05/28/2018 12:29:35
[2018-05-28 13:00] LABS: Troponin I 0.7 ng/mL (0.02-0.05)
--- NOTE | 2018-05-28 13:28 | ECG ---
Date Performed: 05/27/2018 Time Performed: 22:41:26 PTAGE: 83 years EKG: ATRIAL FIBRILLATION PATTERN CONSISTENT WITH PULMONARY DISEASE INCOMPLETE RIGHT BUNDLE BRANC H BLOCK POSSIBLE RIGHT VENTRICULAR HYPERTROPHY ABNORMAL ECG Compared to PREVIOUS TRACING , the frequent PVCs and bigeminy have resolved. The EKG is otherwise wit hout significant serial change. PREVIOUS TRACIN11/07/2017 08.33.37 DOCTOR: Savanah Eisenberg Interpretating Date/Time 05/28/2018 13:27:06
[2018-05-28 14:15] LABS: Bilirubin,Urine Negative (Negative); Color,Urine Yellow (Yellw/Straw); Glucose,Urine (UA) 50 mg/dL (Negative); Hyaline Casts,Urine 1 /lpf (0-3); Leukocyte Esterase,Urine Negative (Negative); Mucus,Urine Few /lpf (Occasional); Nitrite,Urine Negative (Negative); Specific Gravity,Urine 1.013 (1.002-1.035)
[2018-05-28 14:16] LABS: Clarity,Urine Clear (Clear)
[2018-05-28] MEDS: Furosemide 20 MG Tablet PO SCH (17:30)
[2018-05-29] MEDS: Acetaminophen 325 MG Tablet PO PRN ×2 (01:31→09:23)
[2018-05-29] MEDS: Metoprolol Tartrate 25 MG Tablet PO SCH ×3 (01:31→21:36)
[2018-05-29] MEDS: Senna/Docusate Sodium 8.6/50 MG Tablet PO SCH ×3 (01:33→21:37)
[2018-05-29 05:21] LABS: Baso % (Auto) 0.3 % (0.0-2.0); Eos % (Auto) 0.5 % (0.0-4.0); Hematocrit 39.9 % (39.0-51.0); Hemoglobin 12.6 gm/dL (13.0-17.0); Lymph # (Auto) 0.7 th/mm3 (1.0-4.8); Lymph % (Auto) 11.7 % (9.0-44.0); Mean Corpuscular HGB Conc 31.5 % (32.0-36.0); Mean Corpuscular Hemoglobin 29.8 pg (27.0-34.0); Mean Corpuscular Volume 94.7 fL (80.0-100.0); Mean Platelet Volume 7.3 fL (7.0-11.0); Mono % (Auto) 15.6 % (0.0-8.0); Neut # (Auto) 4.5 th/mm3 (1.8-7.7); Neut % (Auto) 71.9 % (16.0-70.0); Platelet Count 246 th/mm3 (150-450); Red Blood Count 4.21 mil/mm3 (4.50-5.90); Red Cell Distribution Width 18.2 % (11.6-17.2); White Blood Count 6.3 th/mm3 (4.0-11.0)
[2018-05-29 05:40] LABS: Calcium 8.2 mg/dL (8.5-10.1); Carbon Dioxide 28.8 meq/L (21.0-32.0); Potassium 4.1 meq/L (3.5-5.1)
--- NOTE | 2018-05-29 08:20 | P.PNIM ---
Subjective Interval history: f/u AMS, afib No chest pain overnight, off Cardizem drip, more alert, no more confusion. Good urine output. Denies any dizziness or lightheadedness. Physical Exam Vital signs: Vital Signs 05/28/18 11:00 05/28/18 12:00 05/28/18 15:00 Temperature 97.6 F Pulse Rate 101 H 97 H 71 Respiratory Rate 18 Blood Pressure 150/97 H Pulse Oximetry 94 L 05/28/18 15:54 05/28/18 16:00 05/28/18 19:00 Temperature 97.7 F Pulse Rate 72 65 75 Respiratory Rate 20 18 Blood Pressure 125/85 Pulse Oximetry 96 05/28/18 20:00 05/28/18 20:06 05/28/18 20:07 Temperature 97.9 F Pulse Rate 74 75 Respiratory Rate 20 20 Blood Pressure 126/83 Pulse Oximetry 95 96 05/28/18 23:00 05/29/18 00:00 05/29/18 03:00 Temperature 98.4 F Pulse Rate 79 79 82 Respiratory Rate 22 Blood Pressure 135/83 Pulse Oximetry 97 05/29/18 04:00 Temperature 97.9 F Pulse Rate 82 Respiratory Rate 18 Blood Pressure 123/75 Pulse Oximetry 96 Intake & Output 05/28/18 05/29/18 05/29/18 18:59 06:59 18:59 Intake Total 1850 / 1850 580 / 580 Output Total 550 / 550 1050 / 1050 Balance 1300 / 1300 -470 / -470 Weight 87 kg Intake: IV 1250 / 1250 Lidocaine/D5W 2000 mg/500 mL 250 / 250 Premix Inj 2,000 mg In 500 ml @ 2 MG/MIN 30 mls/hr IV.CONT . [id number] [facility] Rx#:[id number] NS Inj 1,000 ML @ 125 mls/hr IV 1000 / 1000 .CONT .Q8H [facility] Rx#:[id number] Oral 600 / 600 580 / 580 Output: Urine 550 / 550 1050 / 1050 Other: # Voids 3 4 Date of Last Bowel Movement 05/27/18 # Bowel Movements 0 0 Narrative: Gen.: No acute distress Head: Normocephalic. Left periorbital swelling and ecchymosis left forehead and face, left forehead hematoma EENT: Pupils equal round and reactive to light. Cardiovascular: Regular rate. Irregularly irregular rhythm. Soft murmur. Respiratory: Occasional crackles at bases Abdomen: Soft, nontender, nondistended. No peritoneal signs. Musculoskeletal: No gross deformities. No edema. Right forearm positive for skin tear, 2.5 cm laceration left infraorbital soft tissue Skin: No obvious rashes or erythema. Neuro: Awake, alert, oriented x3. Moves extremities. No focal deficits. Speech is back to normal. Results - Labs CBC & Chem 7: 05/29/18 03:45 05/29/18 03:45 Laboratory Results - last 24 hr 05/28/18 05/28/18 05/28/18 07:22 10:34 11:34 WBC RBC Hgb Hct MCV MCH MCHC RDW Plt Count MPV Neut % (Auto) Lymph % (Auto) [place] % (Auto) Eos % (Auto) Baso % (Auto) Neut # (Auto) Lymph # (Auto) [place] # (Auto) Eos # (Auto) Baso # (Auto) WBC Differential Differential Comment Sodium Potassium Chloride Carbon Dioxide Anion Gap BUN Creatinine Estimated GFR POC Glucose 158 H Random Glucose Calcium Total Creatine Kinase 90 89 Troponin I 0.88 H* 0.70 H* Urine Color Urine Clarity Urine pH Ur Specific [place] Urine Protein Urine Glucose (UA) Urine Ketones Urine Occult Blood Urine Nitrate Urine Bilirubin Urine Urobilinogen Ur Leukocyte Esterase Urine RBC Urine WBC Hyaline Casts Urine Mucus Micro UA Comment Ur Microscopic Review Urine Culture Comments 05/28/18 05/29/18 05/29/18 14:00 03:45 03:45 WBC 6.3 RBC 4.21 L Hgb 12.6 L Hct 39.9 MCV 94.7 MCH 29.8 MCHC 31.5 L RDW 18.2 H Plt Count 246 MPV 7.3 Neut % (Auto) 71.9 H Lymph % (Auto) 11.7 [place] % (Auto) 15.6 H Eos % (Auto) 0.5 Baso % (Auto) 0.3 Neut # (Auto) 4.5 Lymph # (Auto) 0.7 L [place] # (Auto) 1.0 H Eos # (Auto) 0.0 Baso # (Auto) 0.0 WBC Differential . Differential Comment Auto diff final Sodium 139 Potassium 4.1 Chloride 102 Carbon Dioxide 28.8 Anion Gap 8 BUN 18 Creatinine 0.89 Estimated GFR 81 L POC Glucose Random Glucose 103 Calcium 8.2 L Total Creatine Kinase Troponin I Urine Color Yellow Urine Clarity Clear Urine pH 6.0 Ur Specific [place] 1.013 Urine Protein 100 H Urine Glucose (UA) 50 Urine Ketones Negative Urine Occult Blood Negative Urine Nitrate Negative Urine Bilirubin Negative Urine Urobilinogen 2.0 H Ur Leukocyte Esterase Negative Urine RBC 1 Urine WBC 1 Hyaline Casts 1 Urine Mucus Few H Micro UA Comment Cath-culture not ind Ur Microscopic Review Not Reportable Urine Culture Comments Cath-cult not ind Assessment and Plan - Plan 83-year-old male with past medical history significant for atrial fibrillation anticoagulated on Coumadin, CHF, COPD, hypertension, CAD status post ND presents to the emergency department for evaluation of a syncopal episode. Atrial fibrillation, PVCs, RVR-lidocaine switched to cardizem due to AMS, garbled speech. INR therapeutic. Metoprolol started, off Cardizem. Fall secondary to Syncope likely vasovagal, r/o TIA/CVA -became unconscious while bending over in the kitchen, secondary to atrial fibrillation vs vasovaga. Cervical spine CT, no fracture. Head CT showed left frontal scalp tissue swelling, chronic changes including generalized atrophy but no acute intracranial abnormality, no CVA. Face CT showed left frontal scalp and periorbital soft tissue swelling, periorbital hematoma but otherwise no significant mass-effect or fracture. - MRI head pending. Likely CVA.Consult physical therapy. Orthostatic vital signs when patient is able to stand up Demand mediated troponin elevation - EKG without signs of ischemia, showed Afib , troponin maxed at 0.88, likely demand mediated. CHF - EF 45% on prior nuclear scan, awaiting TTE, restarted Lasix per Cards, recheck BMP tomorrow. CAD s/p CABG - cont statin, start ASA when more stable. COPD-duo nebs as needed Heart healthy diet DVT prophylaxis: Coumadin on hold per cardiology Physical therapy evaluation Discussed with son and sister Transfer to [facility]
[2018-05-29] MEDS: Furosemide 20 MG Tablet PO SCH ×2 (09:22→17:34)
--- NOTE | 2018-05-29 10:54 | ECHRPT ---
Indication: ATRIAL FIB CONCLUSIONS The left ventricular systolic function is mildly reduced with an estimated ejection fraction in the range of 45- 50%. Normal left ventricular size. Wall thickness is normal. No regional wall motion abnormalities are present. The right ventricle is mildly dilated. The right atrial size is mildly dilated. Hfpwf-yo-akst mitral valve regurgitation. Mitral annular calcification is present. Diffuse calcification of the aortic valve. There is mild to moderate tricuspid valve regurgitation. The estimated pulmonary arterial pressure is 66.9 mmHg. Trivial pulmonary valve regurgitation. The inferior vena cava is dilated. There is less than 50% respiratory change in dimension of the inferior vena cava (abnormal). BP: / HR: Rhythm: Atrial fibrillation MEASUREMENTS (Male / Female) Normal Values Technical Quality:Good 2D ECHO LV Diastolic Diameter PLAX 5.0 cm 4.2 - 5.9 / 3.9 - 5.3 cm LV Systolic Diameter PLAX 4.1 cm IVS Diastolic Thickness 1.1 cm 0.6 - 1.0 / 0.6 - 0.9 cm LVPW Diastolic Thickness 1.1 cm 0.6 - 1.0 / 0.6 - 0.9 cm LV Relative Wall Thickness 0.4 LVOT Diameter 2.1 cm LA Systolic Diameter LX 3.7 cm 3.0 - 4.0 / 2.7 - 3.8 cm LV Ejection Fraction MOD 4C 48.1 % LV Ejection Fraction 4C AL 50.6 % M-MODE Aortic Root Diameter MM 3.1 cm LA Systolic Diameter MM 3.9 cm LA Ao Ratio MM 1.3 AV Cusp Separation MM 1.6 cm DOPPLER AV Peak Velocity 133.0 cm/s AV Peak Gradient 7.1 mmHg LVOT Peak Velocity 87.4 cm/s LVOT Peak Gradient 3.1 mmHg AV Area Cont Eq pk 2.3 cm MV Area PHT 5.9 cm Mitral E Point Velocity 86.9 cm/s Mitral A Point Velocity 35.5 cm/s Mitral E to A Ratio 2.4 LV E' Septal Velocity 6.5 cm/s Mitral E to LV E' Septal Ratio 13.3 TR Peak Velocity 377.0 cm/s TR Peak Gradient 56.9 mmHg Right Atrial Pressure 10.0 mmHg Pulmonary Artery Systolic Pressu 66.9 mmHg Right Ventricular Systolic Press 66.9 mmHg PV Peak Velocity 85.5 cm/s PV Peak Gradient 2.9 mmHg FINDINGS LEFT VENTRICLE The left ventricular systolic function is mildly reduced with an estimated ejection fraction in the range of 45- 50%. Normal left ventricular size. Wall thickness is normal. No regional wall motion abnormalities are present. RIGHT VENTRICLE The right ventricle is mildly dilated. LEFT ATRIUM The left atrial size is normal. RIGHT ATRIUM The right atrial size is mildly dilated. ATRIAL SEPTUM Normal atrial septal thickness without atrial level shunting by limited color doppler interrogation. AORTA The aortic root and proximal ascending aorta are normal in size on limited imaging. MITRAL VALVE Structurally normal mitral valve. Avcmn-cf-yvaa mitral valve regurgitation. Mitral annular calcification is present. AORTIC VALVE Trileaflet aortic valve. Diffuse calcification of the aortic valve. TRICUSPID VALVE Structurally normal tricuspid valve. There is mild to moderate tricuspid valve regurgitation. The estimated pulmonary arterial pressure is 66.9 mmHg. PULMONARY VALVE Trivial pulmonary valve regurgitation. VESSELS The inferior vena cava is dilated. There is less than 50% respiratory change in dimension of the inferior vena cava (abnormal). PERICARDIUM No pericardial effusion. Román Marsh MD, FACC (Electronically Signed) Final Date:29 May 2018 10:52
--- NOTE | 2018-05-29 16:13 | MR ---
EXAM DATE: 05/29/2018 4:08 PM EDT AGE/SEX: 83 years / Male INDICATIONS: CVA. Confusion and recent falls. CLINICAL DATA: This is the patient's initial encounter. Patient reports that signs and symptoms have been present for 1 day and indicates a pain score of 3/10. MEDICAL/SURGICAL HISTORY: Hypertension. Hypercholesterolemia. CABG. Bilateral knee replacement . COMPARISON: No prior exams available for comparison. TECHNIQUE: Multiplanar, multisequence examination of the brain was performed without contrast. FINDINGS: Cerebrum: The ventricles are normal for age. No evidence of midline shift, mass lesion, hemorrhage or acute infarction. No extraaxial fluid collections are seen. The pituitary gland and suprasellar cistern are normal in configuration. Diffuse mite matter atrophic changes are present. White Matter: No significant signal abnormalities are seen in the white matter. Posterior Fossa: There is an area of wedge-shaped focal restricted diffusion involving the left cereb ellum concerning for acute infarct. No evidence of hemorrhage. No Diffusion Imaging: Focal wedge-shaped area of restricted diffusion involving the left cerebellum. Extracranial: The visualized portions of the orbits and paranasal sinuses are unremarkable. CONCLUSION: 1. Focal small wedge-shaped area of restricted diffusion involving the left cerebellum. Diffuse whit e matter atrophic changes. No other abnormality is identified. Electronically signed by: Aurelia Sanz MD 05/29/2018 4:11 PM EDT
[2018-05-30 05:36] LABS: Calcium 8.4 mg/dL (8.5-10.1); Carbon Dioxide 32.4 meq/L (21.0-32.0); Potassium 3.6 meq/L (3.5-5.1)
--- NOTE | 2018-05-30 07:10 | P.PNCA ---
Subjective Interval history: No acute events. Physical Exam Vital signs: Vital Signs 05/29/18 08:00 05/29/18 08:31 05/29/18 10:57 Temperature 98.1 F Pulse Rate 85 97 H 78 Respiratory Rate 20 24 Blood Pressure 100/60 Pulse Oximetry 93 L 97 05/29/18 10:58 05/29/18 14:39 05/29/18 16:00 Temperature 98.3 F 98.5 F Pulse Rate 78 62 83 Respiratory Rate 19 20 Blood Pressure 148/79 H 143/75 H Pulse Oximetry 96 96 05/29/18 19:00 05/29/18 19:30 05/29/18 22:45 Temperature 97.8 F Pulse Rate 83 86 Respiratory Rate 22 Blood Pressure 111/77 Pulse Oximetry 94 L 96 05/29/18 23:00 05/30/18 00:00 05/30/18 03:00 Temperature 97.6 F Pulse Rate 61 54 L 57 L Respiratory Rate 22 Blood Pressure 110/62 Pulse Oximetry 97 98 05/30/18 04:00 Temperature 98.2 F Pulse Rate 59 L Respiratory Rate 20 Blood Pressure 131/88 Pulse Oximetry 98 Intake & Output 05/29/18 05/30/18 05/30/18 18:59 06:59 18:59 Intake Total 800 / 800 480 / 480 Output Total 2400 / 2400 1425 / 1425 Balance -1600 / -1600 -945 / -945 Weight 84 kg Intake: Oral 800 / 800 480 / 480 Output: Urine 2400 / 2400 1425 / 1425 Other: Date of Last Bowel Movement 05/27/18 # Bowel Movements 0 - Constitutional no acute distress - Routine HEENT Exam Head: Present: normocephalic. Absent: atraumatic - Routine Respiratory Exam Present: CTA bilaterally - Routine Cardiovascular Exam Present: RRR, S1, S2 - Routine Abdominal Exam Present: soft, normoactive bowel sounds - Routine Neurological Exam Present: alert, oriented X3 - Routine Psychiatric Exam Present: normal affect Assessment and Plan - Plan Syncope-most likely vasovagal in the context of positional change and ETOH use. However, can not rule out arrythmia, cardioembolic stroke, TIA. Will perform a Transthoracic Echo. MRI pending. Continue monitoring for ventricular arrhythmias. Atrial fibrillation- d/c lidocaine gtt. given confusion will order lidocaine level. Plan to start diltiazem gtt and place patient on po metoprolol. He is not on an AV natalia agent at home. Holding coumadin for now given recent facial trauma. Hx of CHF-EF 45% on prior nuclear scan. Will order Transthoracic Echo. restart Lasix 40mg po BID Hx of CAD s/p CABG-negative nuclear 2017. No chest pain. continue statin. ideally should be on ASA 81mg when more stable. Elevated troponins 2/2 to demand ischemia 05/30 If ok from a Neuro perspective would rather discharge patient on Eliquis 5 mg po BID. Would continue po Metoprolol and current CV meds. He will follow up with us at discharge.
[2018-05-30] MEDS: Senna/Docusate Sodium 8.6/50 MG Tablet PO SCH ×2 (08:28→21:17)
[2018-05-30] MEDS: Metoprolol Tartrate 25 MG Tablet PO SCH ×2 (08:28→21:17)
[2018-05-30] MEDS: Furosemide 20 MG Tablet PO SCH ×2 (08:31→17:03)
--- NOTE | 2018-05-30 08:39 | P.DCO ---
- Physical Therapy Order: Evaluate and treat - Home Health Nursing Order: Signs/symptoms of disease process, Nursing assessment with vital signs - Certification I have seen patient Matty Yap JR on 05/30/18. My clinical findings support the need for the requested home health care services because: Limited mobility due to disease progression, Deconditioned with increased weakness I certify that my clinical findings support that this patient is homebound because: Impaired cognitive ability/safety, Unsteady gait/balance
--- NOTE | 2018-05-30 14:35 | P.PNIM ---
Subjective Interval history: Follow-up for shortness of breath Shortness of breath better, no chest pain. Still with mild incoordination, no focal weakness. Denies any headache. Wants to go home. Physical Exam Vital signs: Vital Signs 05/29/18 14:39 05/29/18 16:00 05/29/18 19:00 Temperature 98.5 F Pulse Rate 62 83 83 Respiratory Rate 20 Blood Pressure 143/75 H Pulse Oximetry 96 05/29/18 19:30 05/29/18 22:45 05/29/18 23:00 Temperature 97.8 F Pulse Rate 86 61 Respiratory Rate 22 Blood Pressure 111/77 Pulse Oximetry 94 L 96 05/30/18 00:00 05/30/18 03:00 05/30/18 04:00 Temperature 97.6 F 98.2 F Pulse Rate 54 L 57 L 59 L Respiratory Rate 22 20 Blood Pressure 110/62 131/88 Pulse Oximetry 97 98 98 05/30/18 07:00 05/30/18 08:00 05/30/18 11:00 Temperature 97.8 F Pulse Rate 68 81 66 Respiratory Rate 18 Blood Pressure 139/67 Pulse Oximetry 93 L 93 L 97 05/30/18 12:00 05/30/18 13:00 05/30/18 14:00 Temperature 98.5 F Pulse Rate 87 70 74 Respiratory Rate 18 Blood Pressure 123/65 Pulse Oximetry 97 Intake & Output 05/29/18 05/30/18 05/30/18 18:59 06:59 18:59 Intake Total 800 / 800 480 / 480 Output Total 2400 / 2400 1525 / 1525 Balance -1600 / -1600 -1045 / -1045 Weight 84 kg Intake: Oral 800 / 800 480 / 480 Output: Urine 2400 / 2400 1525 / 1525 Other: Date of Last Bowel Movement 05/27/18 # Bowel Movements 0 Narrative: Gen.: No acute distress Head: Normocephalic. Left periorbital swelling and ecchymosis left forehead and face, left forehead hematoma EENT: Pupils equal round and reactive to light. Cardiovascular: Regular rate. Irregularly irregular rhythm. Soft murmur. Respiratory: Crackles left base, otherwise clear. Abdomen: Soft, nontender, nondistended. No peritoneal signs. Musculoskeletal: No gross deformities. No edema. Right forearm positive for skin tear, 2.5 cm laceration left infraorbital soft tissue Skin: No obvious rashes or erythema. Neuro: Awake, alert, oriented x3. Moves extremities. Speech is back to normal , mild incoordination, finger to nose testing mildly abnormal. Very mild dysmetria. Results - Labs CBC & Chem 7: 05/29/18 03:45 05/30/18 04:56 Laboratory Results - last 24 hr 05/30/18 04:56 Sodium 140 Potassium 3.6 Chloride 99 Carbon Dioxide 32.4 H Anion Gap 9 BUN 20 H Creatinine 0.82 Estimated GFR 89 Random Glucose 115 H Calcium 8.4 L - Imaging Impressions Head MRI 05/29/18 00:00 CONCLUSION: 1. Focal small wedge-shaped area of restricted diffusion involving the left cerebellum. Diffuse white matter atrophic changes. No other abnormality is identified. Assessment and Plan - Assessment (1) CVA (cerebral vascular accident) Code(s): I63.9 - Cerebral infarction, unspecified Status: Acute (2) Atrial flutter Code(s): I48.92 - Unspecified atrial flutter Status: Acute (3) Contusion of face Code(s): S00.83XA - Contusion of other part of head, initial encounter Status : Acute - Plan 83-year-old male with past medical history significant for atrial fibrillation anticoagulated on Coumadin, CHF, COPD, hypertension, CAD status post [place] presents to the emergency department for evaluation of a syncopal episode. Atrial fibrillation, PVCs, RVR-lidocaine switched to cardizem due to AMS, garbled speech. INR therapeutic. Continue metoprolol, currently controlled. Ejection fraction 45-50% per echocardiogram, no atrial thrombus. Fall secondary to Syncope likely vasovagal, r/o TIA/CVA -became unconscious while bending over in the kitchen, secondary to atrial fibrillation vs vasovaga. Cervical spine CT, no fracture. Head CT showed left frontal scalp tissue swelling, chronic changes including generalized atrophy but no acute intracranial abnormality, no CVA. Face CT showed left frontal scalp and periorbital soft tissue swelling, periorbital hematoma but otherwise no significant mass-effect or fracture. -MRI showed a small perfusion defect in the left cerebellar area, check carotid ultrasound, echocardiogram as above, consult neurology. Check lipid profile and hemoglobin A1c. Demand mediated troponin elevation - EKG without signs of ischemia, showed Afib , troponin maxed at 0.88, likely demand mediated. CHF - EF 45% on prior nuclear scan, awaiting TTE, continue Lasix, BMP stable. Recheck BMP. CAD s/p CABG - cont statin, start ASA , Eliquis 5 mg PO BID. cardiology would prefer Eliquis over coumadin if ok with Neurology. COPD-duo nebs as needed Heart healthy diet DVT prophylaxis: Eliquis Status post physical therapy evaluation. Discharge with home health care with walker. Discharge once cleared by neurology and if carotid ultrasound is negative.
--- NOTE | 2018-05-30 14:46 | P.CONNEU ---
History of Present Illness Service: Neurology Primary Care Provider: UNKNOWN Chief Complaint: syncope History of Present Illness: 83-year-old gentleman with a history of underlying atrial fibrillation, coronary artery disease admitted for syncopal episode. States is bending over when he suddenly went down and passed out after going down. States this never happened to him before. Denies any prodromal symptoms any palpitations dizziness or vertigo. He was found to be slightly tachycardic A. fib with RVR on arrival. Been seen by cardiology. Is also on Coumadin. An MR brain scan for which demonstrated tiny cerebellar infarct. Feels well otherwise denies any headache focal weakness vision loss language disturbance. Denies any previous history of stroke Review of Systems All other systems reviewed negative except as stated in HPI [facility] - History History Provided By: Patient, Rn Gyn / EMT - Medical History Medical History: Medical History (Last Reviewed 05/29/18 @ 10:10 by Lm Newman) Afib CHF (congestive heart failure) COPD (chronic obstructive pulmonary disease) Hypertension Myocardial infarct - Surgical History Surgical History: Surgical History (Last Reviewed 05/29/18 @ 10:10 by Lm Newman) S/P triple vessel bypass - Family History Family History: Family History (Last Reviewed 05/29/18 @ 10:10 by Lm Newman) Other Family history normal - Tobacco History Second Hand Smoke Exposure: No Tobacco Use In Past 30 Days: No Smoking Status: Never smoker - Alcohol History How Often Do You Have a Drink Containing Alcohol: Monthly or less - Substance Use History Substance History: No History of Abuse - Travel History Recent Travel in the [place] Within the Last 8 Weeks: No Recent Travel Out of the Country Within the Last 8 Weeks: No - Immunization History Tetanus Immunization: Unsure Hx Influenza Vaccine This Season: No Medications and Allergies Active Medications: Active Medications Acetaminophen (Tylenol) 650 mg PO Q4H PRN PRN Reason: Temp > 100.4 Last Admin: 05/29/18 09:23 Dose: 650 mg Al Hydroxide/Mg Hydroxide (Milk Of Frances Liq) 30 ml PO Q12H PRN PRN Reason: Mild Constipation Albuterol (Duoneb Neb (Prn)) 1 ampul NEB Q4HR NEB PRN PRN Reason: SOB/Wheezing Last Admin: 05/29/18 08:30 Dose: 1 ampul Apixaban (Eliquis) 5 mg PO BID [facility] Last Admin: 05/30/18 11:29 Dose: 5 mg Aspirin (Ecotrin) 81 mg PO DAILY [facility] Atorvastatin Calcium (Lipitor) 10 mg PO HS [facility] Last Admin: 05/29/18 21:36 Dose: 10 mg Bisacodyl (Dulcolax Supp) 10 mg RECTAL DAILY PRN PRN Reason: SEVERE CONSITIPATION Furosemide (Lasix) 40 mg PO BID@0900,1800 [facility] Last Admin: 05/30/18 08:31 Dose: 40 mg Sodium Chloride (Ns Inj) 250 mls @ 0 mls/hr IV.SIG BOLUS [facility] Diltiazem HCl 125 mg/ Sodium (Chloride) 125 mls @ 5 mls/hr IV.CONT TITRATE PRN ; Protocol PRN Reason: Per Protocol Lactulose (Lactulose Liq) 30 ml PO DAILY PRN PRN Reason: SEVERE CONSITIPATION Metoprolol Tartrate (Lopressor) 25 mg PO BID [facility] Last Admin: 05/30/18 08:28 Dose: 25 mg Ondansetron HCl (Zofran Inj) 4 mg IV.PUSH Q6H PRN PRN Reason: NAUSEA OR VOMITING Senna/Docusate Sodium (Oxana-Colace) 1 tab PO BID [facility] Last Admin: 05/30/18 08:28 Dose: Not Given Sennosides (Senokot) 17.2 mg PO Q12H PRN PRN Reason: Moderate Constipation Allergies Allergy/AdvReac Type Severity Reaction Status Date / Time codeine Allergy Unknown Verified 11/07/17 08:05 Exam Vital signs: Vital Signs 05/29/18 16:00 05/29/18 19:00 05/29/18 19:30 Temperature 98.5 F 97.8 F Pulse Rate 83 83 86 Respiratory Rate 20 22 Blood Pressure 143/75 H 111/77 Pulse Oximetry 96 94 L 05/29/18 22:45 05/29/18 23:00 05/30/18 00:00 Temperature 97.6 F Pulse Rate 61 54 L Respiratory Rate 22 Blood Pressure 110/62 Pulse Oximetry 96 97 05/30/18 03:00 05/30/18 04:00 05/30/18 07:00 Temperature 98.2 F Pulse Rate 57 L 59 L 68 Respiratory Rate 20 Blood Pressure 131/88 Pulse Oximetry 98 98 93 L 05/30/18 08:00 05/30/18 11:00 05/30/18 12:00 Temperature 97.8 F 98.5 F Pulse Rate 81 66 87 Respiratory Rate 18 18 Blood Pressure 139/67 123/65 Pulse Oximetry 93 L 97 97 05/30/18 13:00 05/30/18 14:00 Temperature Pulse Rate 70 74 Respiratory Rate Blood Pressure Pulse Oximetry Intake & Output 05/29/18 05/30/18 05/30/18 18:59 06:59 18:59 Intake Total 800 / 800 480 / 480 Output Total 2400 / 2400 1525 / 1525 Balance -1600 / -1600 -1045 / -1045 Weight 84 kg Intake: Oral 800 / 800 480 / 480 Output: Urine 2400 / 2400 1525 / 1525 Other: Date of Last Bowel Movement 05/27/18 # Bowel Movements 0 Narrative: GENERAL: Awake alert pleasant SKIN: Warm and dry. HEAD: Left periorbital mild bruising normocephalic. EYES: Pupils equal and round. No scleral icterus. No injection or drainage. ENT: No nasal bleeding or discharge. Mucous membranes pink and moist. NECK: Trachea midline. No JVD. CARDIOVASCULAR: Irregular rhythm, systolic murmur RESPIRATORY: No accessory muscle use. Clear to auscultation. Breath sounds equal bilaterally. GASTROINTESTINAL: Abdomen soft, non-tender, nondistended. MUSCULOSKELETAL: Extremities without clubbing, cyanosis, or edema. No obvious deformities. NEUROLOGICAL: Awake alert oriented 3, no facial asymmetry tongue midline mild left periorbital ecchymosis from fall, visual burorughs grossly full no pronator drift ill result for him to gravity, sensory within normal limits gait not assessed secondary fall risk plantar flex response no clonus elicited PSYCHIATRIC: Calm pleasant appropriate - Constitutional no acute distress - Routine HEENT Exam Head: Present: normocephalic Eye: Present: EOMI Results - Labs CBC & Chem 7: 05/29/18 03:45 05/30/18 04:56 Labs: Laboratory Results - last 24 hr 05/30/18 04:56 Sodium 140 Potassium 3.6 Chloride 99 Carbon Dioxide 32.4 H Anion Gap 9 BUN 20 H Creatinine 0.82 Estimated GFR 89 Random Glucose 115 H Calcium 8.4 L - Imaging Impressions Head MRI 05/29/18 00:00 CONCLUSION: 1. Focal small wedge-shaped area of restricted diffusion involving the left cerebellum. Diffuse white matter atrophic changes. No other abnormality is identified. Review/Management - Diagnosis (1) Cerebellar stroke, acute Code(s): I63.9 - Cerebral infarction, unspecified Status: Acute Current Visit: Yes (2) Multifocal PVCs Code(s): I49.3 - Ventricular premature depolarization Status: Acute Current Visit: Yes (3) Atrial flutter Code(s): I48.92 - Unspecified atrial flutter Status: Acute Current Visit: Yes (4) Head injury Code(s): S09.90XA - Unspecified injury of head, initial encounter Status: Acute Current Visit: Yes (5) Contusion of face Code(s): S00.83XA - Contusion of other part of head, initial encounter Status : Acute Current Visit: Yes - Review/Management Plan: It is possible to tiny stroke because the acute episode he had versus trip and fall versus syncopal episode from cardiac tachyarrhythmia was not have A. fib with mild RVR Recommendations He can be changed Eliquis from neurologic standpoint full dose as a stroke is very small Therapy Carotid ultrasound pending May require inpatient rehab for post stroke therapy
--- NOTE | 2018-05-30 15:53 | US ---
EXAM DATE: 05/30/2018 3:46 PM EDT AGE/SEX: 83 years / Male INDICATIONS: Cerebrovascular accident. CLINICAL DATA: This is the patient's initial encounter. Patient reports that signs and symptoms have been present for 1 day and indicates a pain score of 0/10. MEDICAL/SURGICAL HISTORY: . Afib. CHF. COPD. HTN. ME. CABG. COMPARISON: No prior exams available for comparison. VELOCITY PARAMETERS: ICA/CCA Ratio: Right 1.91 , Left 1.01 ICA: Right 197 cm/sec, Left 129 cm/sec CCA: Right 99 cm/sec, Left 128 cm/sec ECA: Right 149 cm/sec, Left 149 cm/sec Vertebral: Right 62 cm/sec antegrade, Left 51 cm/sec antegrade FINDINGS: Right Carotid: Moderate calcified arteriosclerotic plaque is visualized involving the proximal ICA. The calcified nature generates shadowing limiting the grayscale analysis..The waveforms are within no rmal limits. Left Carotid: Moderate calcified arteriosclerotic plaque is visualized involving the proximal ICA. T he calcified nature generates shadowing limiting the grayscale analysis. The waveforms are within nor mal limits. Other: None. CONCLUSION: Heavily calcified atherosclerotic plaque bilaterally generating a 50-69% stenosis on the right and le ss than 50% stenosis on the left. Antegrade flow involving both vertebral arteries. Electronically signed by: Johnny Brewer MD 05/30/2018 3:52 PM EDT
[2018-05-30 20:56] LABS: Chol/HDL Ratio 1.91 Ratio; HDL Cholesterol 45.4 mg/dL (40.0-60.0)
[2018-05-30 22:08] LABS: Hemoglobin A1c 7.1 % (4.3-6.0)
[2018-05-30] MEDS: Acetaminophen 325 MG Tablet PO PRN (23:07)
[2018-05-31] MEDS: Metoprolol Tartrate 25 MG Tablet PO SCH (08:43)
[2018-05-31] MEDS: Furosemide 20 MG Tablet PO SCH (08:43)
[2018-05-31] MEDS: Senna/Docusate Sodium 8.6/50 MG Tablet PO SCH (08:44)
[2018-05-31 08:51] VITALS: RESP 18; TEMP 97.9
--- NOTE | 2018-05-31 09:32 | P.PNNEU ---
Subjective Subjective Comments: Denies any headache fever night sweats chills focal weakness. Balance is better feels better no vision loss Active Medications: Active Medications Acetaminophen (Tylenol) 650 mg PO Q4H PRN PRN Reason: Temp > 100.4 Last Admin: 05/30/18 23:07 Dose: 650 mg Al Hydroxide/Mg Hydroxide (Milk Of Magnesia Liq) 30 ml PO Q12H PRN PRN Reason: Mild Constipation Albuterol (Duoneb Neb (Prn)) 1 ampul NEB Q4HR NEB PRN PRN Reason: SOB/Wheezing Last Admin: 05/29/18 08:30 Dose: 1 ampul Apixaban (Eliquis) 5 mg PO BID [facility] Last Admin: 05/31/18 08:43 Dose: 5 mg Aspirin (Ecotrin) 81 mg PO DAILY [facility] Last Admin: 05/31/18 08:43 Dose: 81 mg Atorvastatin Calcium (Lipitor) 10 mg PO HS [facility] Last Admin: 05/30/18 21:17 Dose: 10 mg Bisacodyl (Dulcolax Supp) 10 mg RECTAL DAILY PRN PRN Reason: SEVERE CONSITIPATION Furosemide (Lasix) 40 mg PO BID@0900,1800 [facility] Last Admin: 05/31/18 08:43 Dose: 40 mg Sodium Chloride (Ns Inj) 250 mls @ 0 mls/hr IV.SIG BOLUS [facility] Diltiazem HCl 125 mg/ Sodium (Chloride) 125 mls @ 5 mls/hr IV.CONT TITRATE PRN ; Protocol PRN Reason: Per Protocol Lactulose (Lactulose Liq) 30 ml PO DAILY PRN PRN Reason: SEVERE CONSITIPATION Metoprolol Tartrate (Lopressor) 25 mg PO BID [facility] Last Admin: 05/31/18 08:43 Dose: 25 mg Ondansetron HCl (Zofran Inj) 4 mg IV.PUSH Q6H PRN PRN Reason: NAUSEA OR VOMITING Senna/Docusate Sodium (Oxana-Colace) 1 tab PO BID [facility] Last Admin: 05/31/18 08:44 Dose: Not Given Sennosides (Senokot) 17.2 mg PO Q12H PRN PRN Reason: Moderate Constipation Allergies/Adverse Reactions: Allergies Allergy/AdvReac Type Severity Reaction Status Date / Time codeine Allergy Unknown Verified 11/07/17 08:05 Review of Systems All other systems reviewed negative except as stated in HPI Physical Exam Vital signs: Vital Signs 05/30/18 11:00 05/30/18 12:00 05/30/18 13:00 Temperature 98.5 F Pulse Rate 66 87 70 Respiratory Rate 18 Blood Pressure 123/65 Pulse Oximetry 97 97 05/30/18 14:00 05/30/18 15:00 05/30/18 16:00 Temperature 97.9 F Pulse Rate 74 64 72 Respiratory Rate 18 Blood Pressure 123/64 Pulse Oximetry 95 95 05/30/18 17:00 05/30/18 18:00 05/30/18 19:00 Temperature 97.8 F Pulse Rate 67 77 90 Respiratory Rate 24 Blood Pressure 132/69 Pulse Oximetry 90 L 05/30/18 20:00 05/30/18 21:00 05/30/18 22:00 Temperature Pulse Rate 74 70 66 Respiratory Rate Blood Pressure Pulse Oximetry 05/30/18 23:00 05/31/18 00:00 05/31/18 01:00 Temperature 97.7 F Pulse Rate 63 56 L 56 L Respiratory Rate 24 24 Blood Pressure 111/67 Pulse Oximetry 91 L 05/31/18 02:00 05/31/18 03:00 05/31/18 04:00 Temperature 97.4 F L Pulse Rate 64 48 L 62 Respiratory Rate 24 Blood Pressure 116/70 Pulse Oximetry 90 L 05/31/18 05:00 05/31/18 06:00 05/31/18 07:00 Temperature 97.9 F Pulse Rate 54 L 55 L 80 Respiratory Rate 18 Blood Pressure 129/74 Pulse Oximetry 90 L 05/31/18 08:00 05/31/18 09:00 Temperature Pulse Rate 97 H 93 H Respiratory Rate Blood Pressure Pulse Oximetry Intake & Output 05/30/18 05/31/18 05/31/18 18:59 06:59 18:59 Intake Total 660 / 660 480 / 480 Output Total 800 / 800 1100 / 1100 Balance -140 / -140 -620 / -620 Weight 84 kg Intake: Oral 660 / 660 480 / 480 Output: Urine 800 / 800 1100 / 1100 Other: Date of Last Bowel Movement 05/30/18 05/30/18 # Bowel Movements 1 Narrative: GENERAL: Awake alert pleasant SKIN: Warm and dry. HEAD: Left periorbital mild bruising normocephalic. EYES: Pupils equal and round. No scleral icterus. ENT: No nasal bleeding or discharge. Mucous membranes pink and moist. NECK: Trachea midline. No JVD. CARDIOVASCULAR: Irregular rhythm, RESPIRATORY: No accessory muscle use. GASTROINTESTINAL: Abdomen soft, non-tender, nondistended. MUSCULOSKELETAL: Extremities without clubbing, cyanosis, or edema. No obvious deformities. NEUROLOGICAL: Awake alert oriented 3, sitting up finishing breakfast when I came in to see him, no facial asymmetry tongue midline mild left periorbital ecchymosis from fall, visual burroughs grossly full no pronator drift ill result for him to gravity, sensory within normal limits gait not assessed secondary fall risk plantar flex response no clonus elicited PSYCHIATRIC: Calm pleasant appropriate - Constitutional no acute distress - Routine HEENT Exam Head: Present: normocephalic Objective Laboratory Results - last 24 hr 05/30/18 05/30/18 04:56 21:10 Hemoglobin A1c 7.1 H Triglycerides 81 Cholesterol 87 L LDL Cholesterol, Calc 25 HDL Cholesterol 45.4 Cholesterol/HDL Ratio 1.91 Review/Management - Diagnosis (1) Cerebellar stroke, acute Code(s): I63.9 - Cerebral infarction, unspecified Status: Acute Current Visit: Yes (2) Multifocal PVCs Code(s): I49.3 - Ventricular premature depolarization Status: Acute Current Visit: Yes (3) Atrial flutter Code(s): I48.92 - Unspecified atrial flutter Status: Acute Current Visit: Yes (4) Head injury Code(s): S09.90XA - Unspecified injury of head, initial encounter Status: Acute Current Visit: Yes (5) Contusion of face Code(s): S00.83XA - Contusion of other part of head, initial encounter Status : Acute Current Visit: Yes - Review/Management Plan: It is possible to tiny stroke because the acute episode he had versus trip and fall versus syncopal episode from cardiac tachyarrhythmia was not have A. fib with mild RVR Carotid disease not etiology for stroke Medical management serial carotids in the future Recommendations Oral anticoagulation cleared from neurologic standpoint Blood pressure control lipid control Discharge planning home with therapy Can follow-up with us in the outpatient setting in 3-4 weeks
--- NOTE | 2018-05-31 10:30 | P.DS ---
Date of admission: 05/28/18 01:18 Primary care physician: UNKNOWN Attending physician on discharge: Chela Bill Anticipated date of discharge: 05/31/18 Brief History from admission: 83-year-old male with past medical history significant for atrial fibrillation anticoagulated on Coumadin, CHF, COPD, hypertension, CAD status post MS presents to the emergency department for evaluation of a syncopal episode. 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 He reports waking up on the floor approximately 4 hours later. He sustained multiple lacerations to both upper extremities and his left eye/forehead. The patient denies any preceding palpitations or lightheadedness. He denies any chest pain or shortness of breath. He called 911 and paramedics reported the patient was in A. fib with frequent multifocal PVCs. The patient was bolused with lidocaine in the field and then started on a lidocaine infusion. During his evaluation in the emergency department attempts to wean the lidocaine resulted in return of frequent PVCs. The lidocaine infusion was continued. Patient denies any abdominal pain. No nausea/vomiting/diarrhea. No fevers/chills. No lateralizing signs/symptoms. Patient update on day of discharge: No overnight events. No headache, no fall, no chest pain, no shortness of breath, or visual problems. DS: Diagnosis - Discharge Diagnosis (1) CVA (cerebral vascular accident) Status: Acute (2) Atrial flutter Status: Acute (3) Contusion of face Status: Acute DS: Medications - Discharge Medications Prescriptions: apixaban [Eliquis] 5 mg PO BID #60 tab atorvastatin [Lipitor] 10 mg PO HS #30 tab furosemide 40 mg PO BID@0900,1800 #60 tab metformin 500 mg PO BID #60 tab metoprolol tartrate 25 mg PO BID #60 tab DS: Summary Hospital Course: This is an 83-year-old male with past medical history significant for atrial fibrillation anticoagulated on Coumadin, CHF, COPD, hypertension, CAD status post MS presents to the emergency department for evaluation of a syncopal episode. Patient was found to be in atrial fibrillation with PVCs and a rapid ventricular rhythm, he was initially started on lidocaine but switched to Cardizem due to altered mental status. INR was therapeutic. He was then switched to metoprolol. Echocardiogram was done which showed an ejection fraction of 45-50%, no atrial thrombus. Patient was also found to have mild troponin elevation, max of 0.88, likely demand mediated. EKG without signs of ischemia. Cardiology cleared patient for discharge, recommended aspirin, statin , Eliquis instead of Coumadin. Neurology agreed with Eliquis. Because of the fall in the syncope, workup for stroke was done. Cervical spine CT, no fracture. Head CT showed left frontal scalp tissue swelling, chronic changes including generalized atrophy but no acute intracranial abnormality, no CVA. Face CT showed left frontal scalp and periorbital soft tissue swelling, periorbital hematoma but otherwise no significant mass-effect or fracture. However, MRI showed a small perfusion defect in the left cerebellar area, neurology was consulted. Carotid ultrasound was done which showed heavily calcified atherosclerotic plaque bilaterally generating a 50-69% stenosis on the right and less than 50% stenosis on the left. Antegrade flow involving both vertebral arteries. Lipid profile was acceptable. Hemoglobin A1c was 7.1. Patient was started metformin. - Time Spent with Patient Total time spent providing and/or coordinating discharge services: Greater than 30 minutes Exam Vital signs: Vital Signs 05/30/18 11:00 05/30/18 12:00 05/30/18 13:00 Temperature 98.5 F Pulse Rate 66 87 70 Respiratory Rate 18 Blood Pressure 123/65 Pulse Oximetry 97 97 Pulse Oximetry [Resting on Room Air] Pulse Oximetry [Resting with Oxygen] 05/30/18 14:00 05/30/18 15:00 05/30/18 16:00 Temperature 97.9 F Pulse Rate 74 64 72 Respiratory Rate 18 Blood Pressure 123/64 Pulse Oximetry 95 95 Pulse Oximetry [Resting on Room Air] Pulse Oximetry [Resting with Oxygen] 05/30/18 17:00 05/30/18 18:00 05/30/18 19:00 Temperature 97.8 F Pulse Rate 67 77 90 Respiratory Rate 24 Blood Pressure 132/69 Pulse Oximetry 90 L Pulse Oximetry [Resting on Room Air] Pulse Oximetry [Resting with Oxygen] 05/30/18 20:00 05/30/18 21:00 05/30/18 22:00 Temperature Pulse Rate 74 70 66 Respiratory Rate Blood Pressure Pulse Oximetry Pulse Oximetry [Resting on Room Air] Pulse Oximetry [Resting with Oxygen] 05/30/18 23:00 05/31/18 00:00 05/31/18 01:00 Temperature 97.7 F Pulse Rate 63 56 L 56 L Respiratory Rate 24 24 Blood Pressure 111/67 Pulse Oximetry 91 L Pulse Oximetry [Resting on Room Air] Pulse Oximetry [Resting with Oxygen] 05/31/18 02:00 05/31/18 03:00 05/31/18 04:00 Temperature 97.4 F L Pulse Rate 64 48 L 62 Respiratory Rate 24 Blood Pressure 116/70 Pulse Oximetry 90 L Pulse Oximetry [Resting on Room Air] Pulse Oximetry [Resting with Oxygen] 05/31/18 05:00 05/31/18 06:00 05/31/18 07:00 Temperature 97.9 F Pulse Rate 54 L 55 L 80 Respiratory Rate 18 Blood Pressure 129/74 Pulse Oximetry 90 L Pulse Oximetry [Resting on Room Air] Pulse Oximetry [Resting with Oxygen] 05/31/18 08:00 05/31/18 09:00 05/31/18 09:53 Temperature Pulse Rate 97 H 93 H Respiratory Rate Blood Pressure Pulse Oximetry Pulse Oximetry [Resting on Room Air] 85 L Pulse Oximetry [Resting with Oxygen] 91 L 05/31/18 10:00 Temperature Pulse Rate 80 Respiratory Rate Blood Pressure Pulse Oximetry Pulse Oximetry [Resting on Room Air] Pulse Oximetry [Resting with Oxygen] Intake & Output 05/30/18 05/31/18 05/31/18 18:59 06:59 18:59 Intake Total 660 / 660 480 / 480 Output Total 800 / 800 1100 / 1100 Balance -140 / -140 -620 / -620 Weight 84 kg Intake: Oral 660 / 660 480 / 480 Output: Urine 800 / 800 1100 / 1100 Other: Date of Last Bowel Movement 05/30/18 05/30/18 # Bowel Movements 1 Narrative: Gen.: No acute distress Head: Normocephalic. Left periorbital swelling and ecchymosis left forehead and face, left forehead hematoma EENT: Pupils equal round and reactive to light. Cardiovascular: Regular rate. Irregularly irregular rhythm. Soft murmur. Respiratory: Crackles left base, otherwise clear. Abdomen: Soft, nontender, nondistended. No peritoneal signs. Musculoskeletal: No gross deformities. No edema. Right forearm positive for skin tear, 2.5 cm laceration left infraorbital soft tissue Skin: No obvious rashes or erythema. Neuro: Awake, alert, oriented x3. Moves extremities. Speech is back to normal , mild incoordination, finger to nose testing mildly abnormal. Very mild dysmetria. Results Procedures completed during hospitalization: Carotid ultrasound Heavily calcified atherosclerotic plaque bilaterally generating a 50-69% stenosis on the right and less than 50% stenosis on the left. Antegrade flow involving both vertebral arteries. Brain MRI:1. Focal small wedge-shaped area of restricted diffusion involving the left cerebellum. Diffuse white matter atrophic changes. No other abnormality is identified. Labs on day of discharge: Labs from last 24 hours 05/30/18 05/30/18 21:10 04:56 Hemoglobin A1c 7.1 H Triglycerides 81 Cholesterol 87 L LDL Cholesterol, Calc 25 HDL Cholesterol 45.4 Cholesterol/HDL Ratio 1.91 - Impressions ITS Impressions Cervical Spine CT 05/27/18 22:58 CONCLUSION: 1. No fracture is identified. Degenerative changes are present, as above. 2. There is an apparent large right bulla at the right lung apex with pleural based calcification bilaterally. Head CT 05/27/18 22:58 CONCLUSION: 1. Focal left frontal scalp soft tissue swelling. No fracture or acute intracranial abnormality is identified. 2. Chronic changes include generalized atrophy and mild periventricular white matter low-attenuation. . Face CT 05/27/18 23:00 CONCLUSION: 1. Left frontal scalp and periorbital soft tissue swelling. There is an ovoid high density structure medial to the left globe measuring 12 x 6 mm, possibly representing a periorbital hematoma. It has no significant mass effect on the adjacent structures. 2. No fracture is identified. Head MRI 05/29/18 00:00 CONCLUSION: 1. Focal small wedge-shaped area of restricted diffusion involving the left cerebellum. Diffuse white matter atrophic changes. No other abnormality is identified. Carotid Doppler Study 05/30/18 00:00 CONCLUSION: Heavily calcified atherosclerotic plaque bilaterally generating a 50-69% stenosis on the right and less than 50% stenosis on the left. Antegrade flow involving both vertebral arteries. Discharge Plan - Discharge Disposition Patient Disposition: /Home Health Service - Discharge Condition Condition: Stable - Discharge Order Discharge Orders: Discharge Order (Routine); Ordered 05/31/18 Ordered By: Chela Bill - Discharge Details Anticipated Discharge Date: 05/31/18 Discharge Comment: d/c when cleared by neurology and cardiology - Physicians Team Primary Care Provider: UNKNOWN, Attending Provider: Chela Bill Other Providers: Ayanna Prajapati MD ; Mychal Henninga ; Balaji Mcgill MD ; [facility]
[2018-05-31 11:10] VITALS: BP 113/63; O2SAT 95
[2018-05-31 13:04] VITALS: PULSE 91
== END 2018-05-31 13:32 | disposition home health service (06) ==
LOC: NEPC 22:08 → NEDA 05-28 01:18 → HCVI 05-28 05:05 → HCPC 05-30 06:35
PROVIDERS: ADMIT Hospitalist; ATTEND Hospitalist